=== PATIENT | female | born 1955 | race Caucasian/White ===

== ENCOUNTER 2016-04-23 12:41 | Emergency (ER) | payer BC ==
[~2016-04-23] VITALS: Ht 175.3 cm; Wt 123.4 kg
[~2016-04-23 12:41] MED LIST: ALBU8.5H INH; CLON-241 PO; CLON0.1T PO; ERGO500044 PO; GABA-338 PO; INSU100V12 SQ; INSU100V13 SQ; LEVO200T10 PO; LEVO50TA11 PO; NAPR220T PO
[2016-04-23 12:45] VITALS: TEMP 97.8; Ht 175.3 cm; Wt 123.4 kg
--- OUTSIDE RECORDS SUMMARY | 2016-04-23 12:46 | XMS REPORT ---
Author Johana Lopes [facility] eClinicalWorks Address Unknown Phone Unavailable Care Team Providers Care Processing Clerk Name Role Phone Johana Palacios CP Unavailable Allergies, Adverse Reactions, Alerts Substance Reaction Event Type Penicillin anaphylaxis Drug Allergy Benadryl throat closes Drug Allergy Problems Problem Type Condition Code Onset Dates Condition Status Problem Essential (primary) hypertension I10 Active Problem Chronic obstructive pulmonary disease, unspecified J44.9 Active Problem Secondary polycythemia D75.1 Active Problem Post-traumatic stress disorder, chronic F43.12 Active Assessment Post-traumatic stress disorder, chronic F43.12 Active Problem Other constipation K59.09 Active Problem Bipolar disorder, current episode manic without psychotic features, moderate F31.12 Active Problem Type 2 diabetes mellitus with hyperglycemia E11.65 Active Problem Hypothyroidism, unspecified E03.9 Active Problem 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 Problem Hereditary and idiopathic neuropathy, unspecified G60.9 Active Problem Unspecified constipation 564.00 Active Problem Hypertension, benign 401.1 Active Assessment Bipolar disorder, current episode manic without psychotic features , moderate F31.12 Active Problem Chronic post-traumatic headache 339.22 Active Problem Affective personality disorder, unspecified 301.10 Active Problem Unspecified hereditary and idiopathic peripheral neuropathy 356.9 Active Problem Diabetes mellitus without mention of complication, type II or unspecified type, uncontrolled 250.02 Active Problem Hypersomnia, unspecified 780.54 Active Problem COPD 496 Active Problem Constipation, unspecified K59.00 Active Medications Medication Code System Code Instructions Start Date End Date Status Dosage Vraylar [facility] [address] 1.5mg oral daily,then increase to 3mg by mouth every AM June 11, 2015 am Clonazepam [facility] [address]-42 1 MG Orally up to twice daily for anxiety as needed Levothyroxine Sodium [facility] [address]-21 200 MCG Orally Once a day with a 25mcg tab Mar 25, 2015 1 tablet on an empty stomach in the morning Levothyroxine Sodium [facility] [address]-81 25 MCG Orally Once a day with a 200mcg Nov 01, 2014 1 tablet on an empty stomach in the morning Ventolin HFA [facility] [address]-28 108 (90 Base) MCG/ACT Inhalation every 4 hrs Mar 10, 2013 2 puffs as needed Humalog [facility] [address]-07 100 UNIT/ML Subcutaneous TID with meals 45 units Levemir [facility] [address]-23 100 UNIT/ML Subcutaneous Once a day Oct 25, 2014 55 units Hydrochlorothiazide [facility] [address]-22 25 MG Orally Once a day take one tablet by mouth every day Aspir-81 [facility] [address]-89 81 MG Orally Once a day 1 tablet Gabapentin [facility] [address]-65 300 MG Orally Twice every day 1 capsule Procedures Procedure Coding System Code Date OFFICE VISIT, EST-MOD. COMPLEXITY (25 MIN) CPT-4 77952 June 11, 2015 Vital Signs Date/Time: June 11, 2015 Temperature 98.6 F Height 70 in Weight 283.12 lbs Blood Pressure Diastolic 88 mm Hg Blood Pressure Systolic 152 mm Hg Cardiac Monitoring Heart Rate 102 /min BMI 40.62 Index Respiratory Rate 24 /min Results No Known Results Summary Purpose eClinicalWorks Submission
--- OUTSIDE RECORDS SUMMARY | 2016-04-23 12:46 | XMS REPORT ---
Author Author Kush Gustafson [facility] eClinicalWorks Address Unknown Phone Unavailable Care Team Providers Care Dialysis Tech Name Role Phone Kush Gustafson Unavailable Allergies No Known Allergies Problems Problem Type Condition Code Onset Dates Condition Status Problem Chronic obstructive pulmonary disease, unspecified J44.9 Active Problem Type 2 diabetes mellitus with hyperglycemia E11.65 Active Problem Hypothyroidism, unspecified E03.9 Active Problem Hyperlipidemia, unspecified E78.5 Active Problem COPD exacerbation J44.1 Active Problem Bipolar disorder, unspecified F31.9 Active Problem 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 Problem Hereditary and idiopathic neuropathy, unspecified G60.9 Active Problem Bipolar disorder, current episode manic without psychotic features, moderate F31.12 Active Problem Post-traumatic stress disorder, chronic F43.12 Active Problem Chronic post-traumatic headache, not intractable G44.329 Active Problem Constipation, unspecified K59.00 Active Problem Essential (primary) hypertension I10 Active Problem Hypersomnia, unspecified G47.10 Active Problem Secondary polycythemia D75.1 Active Medications Medication Code System Code Instructions Start Date End Date Status Dosage Pulmicort Flexhaler [facility] [address]-69 180 MCG/ACT Inhalation Twice a day Sep 19, 2015 1 puff Aspir-81 [facility] [address]-12 81 MG Orally Once a day 1 tablet Humalog [facility] [address]-31 100 UNIT/ML Subcutaneous TID with meals 40 units Nicotrol [facility] [address]-81 10 MG Inhalation max of 16 time(s) a day. No smoking while using the inhaler August 13, 2015 Dec 11, 2015 1 puff as needed Albuterol Sulfate [facility] [address]-18 (2.5 MG/3ML) 0.083% Inhalation Three times a day Sep 19, 2015 3 ml Gabapentin [facility] 66760035670 300 MG Orally BID TAKE 1 CAPSULE BY MOUTH EVERY NIGHT AT BEDTIME Levothyroxine Sodium [facility] [address]-98 200 MCG Orally Once a day with a 50mcg tab Mar 25, 2015 1 tablet on an empty stomach in the morning Levothyroxine Sodium [facility] [address]-52 50 MCG Orally Once a day with a 200mcg Nov 01, 2014 1 tablet on an empty stomach in the morning Levemir [facility] [address]-56 100 UNIT/ML Subcutaneous Once a day Oct 25, 2014 50 units Ventolin HFA [facility] [address]-30 108 (90 Base) MCG/ACT Inhalation every 4 hrs Mar 10, 2013 2 puffs as needed Clonazepam [facility] [address]-43 1 MG Orally up to twice daily for anxiety as needed [place] & Syringes [facility] 0 . Dx code E11.65 3 Times a day Oct 24, 2015 as directed Results No Known Results Summary Purpose eClinicalWorks Submission
--- OUTSIDE RECORDS SUMMARY | 2016-04-23 12:46 | XMS REPORT ---
Author Author Johana Palacios Organization eClinicalWorks Address Unknown Phone Unavailable Care Team Providers Care Information Services Consultant Name Role Phone Johana Palacios CP Unavailable Allergies No Known Allergies Problems Problem Type Condition Code Onset Dates Condition Status Problem Chronic post-traumatic headache 339.22 Active Problem Unspecified hypothyroidism 244.9 Active Problem Unspecified constipation 564.00 Active Problem Affective personality disorder, unspecified 301.10 Active Problem COPD 496 Active Problem Unspecified hereditary and idiopathic peripheral neuropathy 356.9 Active Problem Anxiety state, unspecified 300.00 Active Problem Hypertension, benign 401.1 Active Problem Diabetes mellitus without mention of complication, type II or unspecified type, uncontrolled 250.02 Active Problem Bipolar I disorder, single manic episode, unspecified 296.00 Active Medications Medication Code System Code Instructions Start Date End Date Status Dosage Clonazepam [facility] [address]-85 1 MG Orally Three times a day as needed for anxiety as needed Results No Known Results Summary Purpose [employer] Submission
--- OUTSIDE RECORDS SUMMARY | 2016-04-23 12:46 | XMS REPORT ---
Author Author Kush Gustafson Organization eClinicalWorks Address Unknown Phone Unavailable Care Team Providers Care Space Systems Operations Manager Name Role Phone Kush Gustafson CP Unavailable Allergies, Adverse Reactions, Alerts Substance Reaction Event Type Penicillin anaphylaxis Drug Allergy Benadryl throat closes Drug Allergy Problems Problem Type Condition Code Onset Dates Condition Status Problem Essential (primary) hypertension I10 Active Assessment Encounter for screening mammogram for malignant neoplasm of breast Z12.31 Active Problem Secondary polycythemia D75.1 Active Assessment Hyperlipidemia, unspecified E78.5 Active Problem Chronic obstructive pulmonary disease, unspecified J44.9 Active Problem Type 2 diabetes mellitus with hyperglycemia E11.65 Active Problem Hypothyroidism, unspecified E03.9 Active Problem Hyperlipidemia, unspecified E78.5 Active Problem COPD exacerbation J44.1 Active Assessment Mastodynia N64.4 Active Assessment Vertigo R42 Active Problem Bipolar disorder, unspecified F31.9 Active Assessment Controlled type 2 diabetes mellitus without complication, without long-term current use of insulin E11.9 Active Problem 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 Problem Hereditary and idiopathic neuropathy, unspecified G60.9 Active Problem Bipolar disorder, current episode manic without psychotic features, moderate F31.12 Active Problem Post-traumatic stress disorder, chronic F43.12 Active Assessment Bipolar disorder, unspecified F31.9 Active Assessment Secondary polycythemia D75.1 Active Assessment Tension-type headache, unspecified, not intractable G44.209 Active Assessment Hypothyroidism, unspecified E03.9 Active Problem Chronic post-traumatic headache, not intractable G44.329 Active Problem Constipation, unspecified K59.00 Active Assessment Shortness of breath R06.02 Active Problem Hypersomnia, unspecified G47.10 Active Medications Medication Code System Code Instructions Start Date End Date Status Dosage Clonazepam [facility] [address]-36 1 MG Orally up to twice daily for anxiety as needed Ventolin HFA [facility] [address]-02 108 (90 Base) MCG/ACT Inhalation every 4 hrs Mar 10, 2013 2 puffs as needed Albuterol Sulfate [facility] [address]-37 (2.5 MG/3ML) 0.083% Inhalation Three times a day Sep 19, 2015 3 ml Pulmicort Flexhaler [facility] [address]-50 180 MCG/ACT Inhalation Twice a day Sep 19, 2015 1 puff Gabapentin [facility] 92202074359 300 MG Orally BID TAKE 1 CAPSULE BY MOUTH EVERY NIGHT AT BEDTIME Nicotrol [facility] [address]-24 10 MG Inhalation max of 16 time(s) a day. No smoking while using the inhaler August 13, 2015 Dec 11, 2015 1 puff as needed Humalog [facility] [address]-70 100 UNIT/ML Subcutaneous TID with meals 40 units [place] & Syringes [facility] 0 . Dx code E11.65 3 Times a day Oct 24, 2015 as directed Aspir-81 [facility] [address]-62 81 MG Orally Once a day 1 tablet Levothyroxine Sodium [facility] [address]-35 200 MCG Orally Once a day with a 50mcg tab Mar 25, 2015 1 tablet on an empty stomach in the morning Levothyroxine Sodium [facility] [address]-11 50 MCG Orally Once a day with a 200mcg Nov 01, 2014 1 tablet on an empty stomach in the morning Levemir [facility] [address]-77 100 UNIT/ML Subcutaneous Once a day Oct 25, 2014 50 units Procedures Procedure Coding System Code Date OFFICE VISIT, EST-LOW COMPLEXITY (15 MIN.) CPT-4 83980 Nov 21, 2015 Vital Signs Date/Time: Nov 21, 2015 Temperature 97.0 F Height 70 in Weight 287.0 lbs Blood Pressure Diastolic 96 mm Hg Blood Pressure Systolic 138 mm Hg Cardiac Monitoring Heart Rate 77 /min BMI 41.18 Index Oximetry 96 % Respiratory Rate 18 /min Results No Known Results Summary Purpose eClinicalWorks Submission
--- OUTSIDE RECORDS SUMMARY | 2016-04-23 12:46 | XMS REPORT ---
Author Author Rona Yin [facility] eClinicalWorks Address Unknown Phone Unavailable Care Team Providers Care Inspector Tubes Name Role Phone Rona Yin CP Unavailable Allergies No Known Allergies Problems Problem Type Condition ICD-9 Code Onset Dates Condition Status Problem Chronic [...] Instructions Start Date End Date Status Dosage Diflucan [facility] [address]-79 150 MG Orally Take one today, may repeat in 3 days. Feb 22, 2014 Feb 27, 2014 Active 1 tablet Hydrochlorothiazide [facility] [address]-48 12.5 Orally Twice every day Active take one tablet by mouth every day Vital Signs Date/Time: Feb 20, 2014 Height 70 inches Weight 265.8 lbs Temperature 98.3 F Blood Pressure Diastolic 102 mm Hg Blood Pressure Systolic 172 mm Hg Cardiac Monitoring Heart Rate 90 Beats per Minute BMI 38.13 Index Respiratory Rate 16 per Minute Results No Known Results Summary Purpose eClinicalWorks Submission
--- OUTSIDE RECORDS SUMMARY | 2016-04-23 12:46 | XMS REPORT ---
Author Author Jonelle Guzmán [facility] eClinicalWorks Address Unknown Phone Unavailable Care Team Providers Care Compliance Specialist Name Role Phone Jonelle Guzmán CP Unavailable Allergies No Known Allergies Problems [...] 564.00 Active Problem Hypertension, benign 401.1 Active Problem Chronic post-traumatic headache 339.22 Active Problem Affective personality disorder, unspecified 301.10 Active Problem Unspecified hereditary and idiopathic peripheral neuropathy 356.9 Active Problem Diabetes mellitus without mention of complication, type II or unspecified type, uncontrolled 250.02 Active Problem Hypersomnia, unspecified 780.54 Active Problem COPD 496 Active Problem Constipation, unspecified K59.00 Active Medications No Known Medications Results No Known Results Summary Purpose eClinicalWorks Submission
--- OUTSIDE RECORDS SUMMARY | 2016-04-23 12:46 | XMS REPORT ---
Author Author Kush Gustafson [facility] eClinicalWorks Address Unknown Phone Unavailable Care Team Providers Care Loom Winder Tender Name Role Phone Kush Gustafson Unavailable Allergies [...] Post-traumatic stress disorder, chronic F43.12 Active Assessment Hypothyroidism, unspecified E03.9 Active Assessment Secondary polycythemia D75.1 Active Assessment Hyperlipidemia, unspecified E78.5 Active Assessment Controlled type 2 diabetes mellitus without complication, without long-term current use of insulin E11.9 Active Problem Chronic post-traumatic headache, not intractable G44.329 Active Problem Constipation, unspecified K59.00 Active Assessment Shortness of breath R06.02 Active Problem Essential (primary) hypertension I10 Active Problem Hypersomnia, unspecified G47.10 Active Problem Secondary polycythemia D75.1 Active Medications Medication Code System Code Instructions Start Date End Date Status Dosage Nicotrol [facility] [address]-50 10 MG Inhalation max of 16 time(s) a day. No smoking while using the inhaler August 13, 2015 Dec 11, 2015 1 puff as needed Humalog [facility] [address]-80 100 UNIT/ML Subcutaneous TID with meals 40 units Albuterol Sulfate [facility] [address]-19 (2.5 MG/3ML) 0.083% Inhalation Three times a day Sep 19, 2015 3 ml Levothyroxine Sodium [facility] [address]-77 50 MCG Orally Once a day with a 200mcg Nov 01, 2014 1 tablet on an empty stomach in the morning Clonazepam [facility] [address]-26 1 MG Orally up to twice daily for anxiety as needed Ventolin HFA [facility] [address]-19 108 (90 Base) MCG/ACT Inhalation every 4 hrs Mar 10, 2013 2 puffs as needed Pulmicort Flexhaler [facility] [address]-60 180 MCG/ACT Inhalation Twice a day Sep 19, 2015 1 puff [place] & Syringes [facility] 0 . Dx code E11.65 3 Times a day Oct 24, 2015 as directed Levothyroxine Sodium [facility] [address]-52 200 MCG Orally Once a day with a 50mcg tab Mar 25, 2015 1 tablet on an empty stomach in the morning Aspir-81 [facility] [address]-68 81 MG Orally Once a day 1 tablet Gabapentin [facility] 18714054212 300 MG Orally BID TAKE 1 CAPSULE BY MOUTH EVERY NIGHT AT BEDTIME Levemir [facility] [address]-14 100 UNIT/ML Subcutaneous Once a day Oct 25, 2014 50 units Procedures Procedure Coding System Code Date COMPREHENSIVE METABOLIC PANEL CPT-4 68603 Nov 28, 2015 MAGNESIUM CPT-4 26937 Nov 28, 2015 COMPLETE CBC W/AUTO DIFF WBC CPT-4 45265 Nov 28, 2015 TROPONIN CPT-4 38159 Nov 28, 2015 ASSAY OF PHOSPHORUS CPT-4 58565 Nov 28, 2015 URINALYSIS WITH MICROSCOPIC CPT-4 76291 Nov 28, 2015 TSH CPT-4 59712 Nov 28, 2015 Results No Known Results Summary Purpose eClinicalWorks Submission
--- OUTSIDE RECORDS SUMMARY | 2016-04-23 12:46 | XMS REPORT ---
Author Author Rona Yin [facility] eClinicalWorks Address Unknown Phone Unavailable Care Team Providers Care Sap Enterprise Portal Consultant Name Role Phone Rona Yin CP Unavailable [...] single manic episode, unspecified 296.00 Active Medications No Known Medications Results No Known Results Summary Purpose eClinicalWorks Submission
--- OUTSIDE RECORDS SUMMARY | 2016-04-23 12:46 | XMS REPORT ---
Author Author Rona Yin [facility] eClinicalWorks Address Unknown Phone Unavailable Care Team Providers Care Compensation Associate Name Role Phone Rona Yin CP Unavailable Allergies No Known Allergies Problems Problem Type Condition Code Onset Dates Condition Status Problem Unspecified constipation 564.00 Active Problem Hypertension, benign 401.1 Active Problem Unspecified hypothyroidism 244.9 Active Problem Chronic post-traumatic headache 339.22 Active Problem Unspecified hereditary and idiopathic peripheral neuropathy 356.9 Active Problem Affective personality disorder, unspecified 301.10 Active Problem Hypersomnia, unspecified 780.54 Active Problem Bipolar I disorder, single manic episode, unspecified 296.00 Active Problem Anxiety state, unspecified 300.00 Active Problem COPD 496 Active Problem Diabetes mellitus without mention of complication, type II or unspecified type, uncontrolled 250.02 Active Medications No Known Medications Results No Known Results Summary Purpose eClinicalWorks Submission
--- OUTSIDE RECORDS SUMMARY | 2016-04-23 12:46 | XMS REPORT ---
Author Author Shirley Ewing Organization eClinicalWorks Address Unknown Phone Unavailable Care Team Providers Care Rubber Goods Assembler Name Role Phone Shirley Ewing CP Unavailable Allergies No Known Allergies Problems [...] Instructions Start Date End Date Status Dosage Levothyroxine Sodium [facility] 82983181926 175 TAKE ONE TABLET BY MOUTH ONCE A DAY, ON AN EMPTY STOMACH, MUST CALL MD FOR APPOINTMENT Susan [facility] [address]-72 100 UNIT/ML Subcutaneous Once a day Feb 20, 2014 30 units Clonazepam [facility] [address]-61 1 MG Orally Three times a day as needed for anxiety as needed Propranolol HCl [facility] 26281713988 10 Orally up to Twice a day as needed for anxiety 1 tablet Lisinopril [facility] 96310718562 40 Orally Once a day 1 tablet NovoLog [facility] 91538009460 100 Subcutaneous TID w/ meals 20 units Hydrochlorothiazide [facility] 73874584646 12.5 Orally Twice every day take one tablet by mouth every day FluvoxaMINE Maleate ER [facility] 46955241583 100 Orally Once a day 1 capsule at bedtime Gabapentin [facility] [address]-50 300 MG Orally at bedtime May 09, 2014 1 capsule Ventolin HFA [facility] [address]-23 108 (90 Base) MCG/ACT Inhalation every 4 hrs Mar 10, 2013 2 puffs as needed Results No Known Results Summary Purpose eClinicalWorks Submission
--- OUTSIDE RECORDS SUMMARY | 2016-04-23 12:46 | XMS REPORT ---
Author Author Johana Palacios [facility] eClinicalWorks Address Unknown Phone Unavailable Care Team Providers Care Uniform Force Captain Name Role Phone Johana Palacios CP Unavailable [...] Start Date End Date Status Dosage Clonazepam [facility] [address]-77 1 MG Orally Three times a day as needed for anxiety as needed Results No Known Results Summary Purpose [employer] Submission
--- OUTSIDE RECORDS SUMMARY | 2016-04-23 12:46 | XMS REPORT ---
Author Author Jonelle Guzmán [facility] eClinicalWorks Address Unknown Phone Unavailable Care Team Providers Care Shed Boss Name Role Phone Jonelle Guzmán CP Unavailable [...]
--- OUTSIDE RECORDS SUMMARY | 2016-04-23 12:46 | XMS REPORT ---
Author Author Jonelle Guzmán [facility] eClinicalWorks Address Unknown Phone Unavailable Care Team Providers Care Child Support Officer Name Role Phone Jonelle Guzmán CP Unavailable [...] Instructions Start Date End Date Status Dosage Ventolin HFA [facility] [address]-59 108 (90 Base) MCG/ACT Inhalation every 4 hrs Mar 10, 2013 2 puffs as needed Results No Known Results Summary Purpose eClinicalWorks Submission
--- OUTSIDE RECORDS SUMMARY | 2016-04-23 12:46 | XMS REPORT ---
Author Jonelle Head [facility] eClinicalWorks Address Unknown Phone Unavailable Care Team Providers Care Pbx Repairer Name Role Phone Jonelle Guzmán CP Unavailable [...] Active Problem Hypertension, benign 401.1 Active Assessment Polycythemia D75.1 Active Problem Chronic post-traumatic headache 339.22 Active [...] Start Date End Date Status Dosage Nicotrol [facility] [address]-29 10 MG Inhalation max of 16 time(s) a day. No smoking while using the inhaler August 13, 2015 Dec 11, 2015 1 puff as needed Levemir [facility] [address]-95 100 UNIT/ML Subcutaneous Once a day Oct 25, 2014 50 units Clonazepam [facility] [address]-86 1 MG Orally up to twice daily for anxiety as needed Gabapentin [facility] 26019630874 300 MG Orally BID TAKE 1 CAPSULE BY MOUTH EVERY NIGHT AT BEDTIME Humalog [facility] [address]-46 100 UNIT/ML Subcutaneous TID with meals 40 units Levothyroxine Sodium [facility] [address]-35 50 MCG Orally Once a day with a 200mcg Nov 01, 2014 1 tablet on an empty stomach in the morning Cyclobenzaprine HCl [facility] [address]-87 10 MG Orally Once a day Dec 28, 2013 Sep 22, 2015 1 tablet as needed Ventolin HFA [facility] [address]-07 108 (90 Base) MCG/ACT Inhalation every 4 hrs Mar 10, 2013 2 puffs as needed Aspir-81 [facility] [address]-43 81 MG Orally Once a day 1 tablet Levothyroxine Sodium [facility] [address]-96 200 MCG Orally Once a day with a 50mcg tab Mar 25, 2015 1 tablet on an empty stomach in the morning Procedures Procedure Coding System Code Date COMPLETE CBC W/AUTO DIFF WBC CPT-4 86055 Sep 12, 2015 Results No Known Results Summary Purpose eClinicalWorks Submission
--- OUTSIDE RECORDS SUMMARY | 2016-04-23 12:46 | XMS REPORT ---
Author Author Rona Yin [facility] eClinicalWorks Address Unknown Phone Unavailable Care Team Providers Care Order Picker Name Role Phone Rona Yin CP Unavailable [...] unspecified 296.00 Active Medications No Known Medications Vital Signs Date/Time: Feb 20, 2014 Height 70 inches Weight 265.8 lbs Temperature 98.3 F Blood Pressure Diastolic 102 mm Hg Blood Pressure Systolic 172 mm Hg Cardiac Monitoring Heart Rate 90 Beats per Minute BMI 38.13 Index Respiratory Rate 16 per Minute Results No Known Results Summary Purpose eClinicalWorks Submission
--- OUTSIDE RECORDS SUMMARY | 2016-04-23 12:47 | XMS REPORT ---
Author Jonelle Head [facility] [place] eClinicalWorks Address Unknown Phone Unavailable Care Team Providers Care Newspaper Photographer Name Role Phone Jonelle Guzmán CP Unavailable Allergies, Adverse Reactions, Alerts Substance Reaction Event Type Penicillin anaphylaxis Drug Allergy Benadryl throat closes Drug Allergy Problems Problem Type Condition Code Onset Dates Condition Status Problem Anxiety state, unspecified 300.00 Active Problem Diabetes mellitus without mention of complication, type II or unspecified type, uncontrolled 250.02 Active Problem Bipolar I disorder, single manic episode, unspecified 296.00 Active Problem Essential (primary) hypertension I10 Active Problem Constipation, unspecified K59.00 Active Problem Anxiety disorder, unspecified F41.9 Active Problem Affective personality disorder, unspecified 301.10 Active Problem COPD 496 Active Problem Hypersomnia, unspecified 780.54 Active Problem Unspecified hereditary and idiopathic peripheral neuropathy 356.9 Active Assessment Primary central sleep apnea G47.31 Active Assessment Constipation, unspecified K59.00 Active Problem Chronic post-traumatic headache 339.22 Active Problem Unspecified constipation 564.00 Active Assessment Essential (primary) hypertension I10 Active Problem Unspecified hypothyroidism 244.9 Active Assessment Anxiety disorder, unspecified F41.9 Active Problem Hypertension, benign 401.1 Active Medications Medication Code System Code Instructions Start Date End Date Status Dosage Gabapentin [facility] [address]-01 300 MG Orally at bedtime May 09, 2014 1 capsule Levemir [facility] [address]-87 100 UNIT/ML Subcutaneous Once a day Oct 25, 2014 55 units Fluvoxamine Maleate [facility] [address]-81 100 MG Orally Twice a day Oct 23, 2014 1 tablet Levothyroxine Sodium [facility] [address]-66 200 MCG Orally Once a day with an additional 25mcg take one tablet by mouth once a day, on an empty stomach, * Lisinopril [facility] 13886715805 40 Orally Once a day 1 tablet Hydrochlorothiazide [facility] 77230381836 12.5 Orally Twice every day take one tablet by mouth every day Levothyroxine Sodium [facility] [address]-78 25 MCG Orally Once a day with a 200mcg Nov 01, 2014 1 tablet on an empty stomach in the morning Aspir-81 [facility] [address]-50 81 MG Orally Once a day 1 tablet Clonazepam [facility] [address]-89 1 MG Orally Three times a day as needed for anxiety as needed Esomeprazole Magnesium [facility] [address]-74 40 MG Orally Once a day Nov 27, 2014 1 capsule Humalog [facility] [address]-58 100 UNIT/ML Subcutaneous tid 45 u tid Ventolin HFA [facility] [address]-50 108 (90 Base) MCG/ACT Inhalation every 4 hrs Mar 10, 2013 2 puffs as needed Procedures Procedure Coding System Code Date OFFICE VISIT, EST-LOW COMPLEXITY (15 MIN.) CPT-4 93515 Dec 14, 2014 Vital Signs Date/Time: Dec 14, 2014 Height 70 in Weight 287.12 lbs Temperature 98.0 F Blood Pressure Diastolic 116 mm Hg Blood Pressure Systolic 167 mm Hg Cardiac Monitoring Heart Rate 88 /min BMI 41.19 Index Respiratory Rate 18 /min Results No Known Results Summary Purpose eClinicalWorks Submission
--- OUTSIDE RECORDS SUMMARY | 2016-04-23 12:47 | XMS REPORT | Continuity of Care Document ---
Author Author [facility] Organization [facility] Address Unknown Phone Unavailable Support Name Relationship Address Phone TOSHIA HERNANDEZ MD Caregiver [address] [place] [address] Unavailable LADI TERESA APRN Caregiver [address] [place] [address] Unavailable JAYDA GANN Next Of Kin [address] [id number] [phone] c Insurance Providers Guarantor Manuel Gann Address [address] [place] [address] c Email [email or web address] Payer Rust Policy Number [id number] Subscriber's Name Manuel Gann Relationship 18 Self Group Number [id number] Problems Active Problems Medical Problem Onset Date Status ALLERGIC CONJUNCTIVITIS Unknown Acute Acute internal derangement of right knee Unknown Acute Hypertension Unknown Acute Hypertensive urgency Unknown Acute Lumbar strain Unknown Acute Non compliance w medication regimen Unknown Acute Polycythemia Unknown Acute Right ankle sprain Unknown Acute Right ankle sprain Unknown Acute Seizure-like activity Unknown Acute Medications Current Home Medications Medication Dose Units Route Directions Days Qty Instructions Start Date Albuterol Sulfate (Proair Hfa 90 Mcg/Actuation) 8.5 Gm Hfa.aer.ad 1 Puff Inhalation Every 6 Hours as needed for Shortness Of Air 08/15/15 Clonazepam 1 Mg Tablet 1 Mg Oral Twice A Day 10/16/10 Clonidine Hcl 0.1 Mg Tablet 0.1 Tab Oral Twice A Day 08/15/15 Ergocalciferol (Vitamin D2) (Vitamin D2) 50,000 Unit Capsule 50,000 Unit Oral Weekly 08/15/15 Gabapentin 300 Mg Capsule 300 Mg Oral Twice A Day 08/15/15 Insulin Aspart (Novolog) 100 Unit/Ml Inj 40 Unit Sub-Q Three Times Daily With Meals 08/15/15 Insulin Detemir (Levemir) 100 Unit/Ml Inj 50 Unit Sub-Q Bedtime 08/15/15 Levothyroxine Sodium 50 Mcg Tablet 50 Mcg Oral Daily 08/15/15 Levothyroxine Sodium 200 Mcg Tablet 200 Mcg Oral Daily 08/15/15 Naproxen Sodium (Naproxen 220MG) 220 Mg Tablet 440 Mg Oral Twice A Day 08/15/15 Past Home Medications Medication Directions Ordered Status Acetaminophen (Tylenol Extra Strength) 500 Mg Tablet, 500 Mg Oral As Needed 10/05/09 Discontinued Clonazepam 1 Mg Tablet, 1 Mg Oral As Needed 03/21/08 Discontinued Desvenlafaxine Succinate (Pristiq Er) 100 Mg Tab.er.24h, 100 Mg Oral Daily Discontinued Dextrose (Glucose) 1 Tab.chew Tab.chew, 1 Tab.chew Oral As Needed 10/16/10 Discontinued Fluoxetine Hcl (Prozac) 10 Mg Capsule, 10 Mg Oral Daily 06/09/10 Discontinued Insulin Aspart (Novolog) 100 U/Ml Vial, 15 U Sub-Q Before Meals 08/03/11 Discontinued Insulin Aspart (Novolog) 100 U/Ml Cartridge, 6 U Sub-Q Three Times A Day 09/18 Discontinued Insulin Glargine (Lantus) 100 U/Ml Vial, 45 U Sub-Q Bedtime 08/03/11 Discontinued Insulin Glargine (Lantus) 100 U/Ml Vial, 20 U Sub-Q Bedtime 10/16/10 Discontinued Lamotrigine 25 Mg Tab.disper, 25 Mg Oral Daily 05/21/12 Discontinued Levothyroxine Sodium 200 Mcg Tablet, 150 Mcg Oral Daily 08/16/10 Discontinued Levothyroxine Sodium (Synthroid) 200 Mcg Tablet, 200 Mcg Oral Daily 10/05/09 Discontinued Lisinopril 20 Mg Tablet, 20 Mg Oral Daily 10/16/10 Discontinued Lisinopril/Hydrochlorothiazide (Lisinopril-Hctz 20-25 Mg Tab) 1 Tab Tablet, 1 Tab Oral Daily 10/16/10 Discontinued Lorazepam 0.5 Mg Tablet, 0.5 Mg Oral Three Times A Day 08/16/10 Discontinued Lorazepam 0.5 Mg Tablet, 0.5 Mg Oral Twice A Day 06/09/10 Discontinued Lovastatin 20 Mg Tablet, 20 Mg Oral Daily 10/16/10 Discontinued Lovastatin 20 Mg Tablet, 20 Mg Oral Daily 08/03/11 Discontinued Metformin Hcl 1,000 Mg Tablet, 1000 Mg Oral Twice A Day 10/16/10 Discontinued Metoprolol Tartrate 25 Mg Tablet, 25 Mg Oral Daily 08/03/11 Discontinued Propanolol , 1 Tab Oral Daily 06/09/10 Discontinued Quetiapine Fumarate (Seroquel) 50 Mg Tablet, 12.5 As Needed 10/05/09 Discontinued Saphris , 10 Mg Sublingual As Needed 02/18/11 Discontinued Social History Social History Problem Response Recorded Date/Time Onset Date Status Chewing Tobacco Status No 03/02/2013 6:36pm Not Applicable Not Applicable Hx Substance Use No 08/15/2015 10:20am Not Applicable Not Applicable Hx Alcohol Use No 08/15/2015 10:20am Not Applicable Not Applicable Has the pt used tobacco in the last 12 months Yes 08/16/2015 3:06pm Not Applicable Not Applicable Tobacco Usage smoke 12/07/2013 2:24pm Not Applicable Not Applicable Hospital Discharge Instructions Current inpatient/outpatient. Discharge instructions are currently unavailable. Plan of Care Current inpatient/outpatient. The plan of care is currently unavailable Functional Status No functional status results. Allergies, Adverse Reactions, Alerts Allergen Type Severity Reaction Status Last Updated diphenhydramine HCl Allergy Unknown THROAT SWELLING AND INSOMNIA Active Penicillin Allergy Unknown Active 08/15/15 Immunizations Query Response on File Recorded Date/Time Hx Influenza Vaccination No 08/16/15 3:06pm Hx Pneumococcal Vaccination No 08/16/15 3:06pm Hx Tetanus, Diptheria, Pertussis NO BROKEN SKIN 12/07/13 1:08pm Hx Influenza Vaccination No 08/16/15 3:06pm Hx Tetanus, Diptheria, Pertussis NO BROKEN SKIN 12/07/13 1:08pm Vital Signs Acute Vital Signs Vital Response Date/Time Temperature (Fahrenheit) 95.7 deg F (96.8 - 99.1) 08/19/2015 9:49am Temperature (Calculated Celsius) 35.47478 degrees C (36.0 - 37.3) 08/19/2015 9:49am Pulse Rate (adult) 72 bpm (60 - 100) 08/19/2015 11:44am Respiratory Rate 20 breaths/min (10 - 20) 08/19/2015 11:44am O2 Sat by Pulse Oximetry 93 % (90 - 100) 08/19/2015 11:44am Oxygen Delivery Method Room Air 08/19/2015 11:44am Blood Pressure 180/104 mm Hg 08/19/2015 11:44am Blood Pressure Source Automatic Cuff 08/19/2015 11:44am Height (Feet) 5 feet 08/16/2015 3:01pm Height (Inches) 9.00 inches 08/16/2015 3:01pm Weight (Kilograms) 130.300 kg 08/16/2015 3:01pm Body Mass Index (BMI) 42.4 08/16/2015 3:01pm Results Laboratory Results Test Name Result Units Flags Reference Collection Date/Time Result Date/ Time Comments Icterus Index < 2 0-7 08/15/2015 10:50am 08/15/2015 11:31am Chemistry Specimen Hemolysis 102 H 0-25 08/15/2015 10:50am 08/15/2015 11:31am 71-285: Specimen Exhibited Moderate Hemolysis - can falsely elevate K (Potassium), Troponin I, CA 19-9, PTH, CSF Glucose, Urine Protein, and can falsely decrease Phenytoin. Turbidity < 20 0-20 08/15/2015 10:50am 08/15/2015 11:31am Sodium Level 138 MEQ/L 134-144 08/15/2015 10:50am 08/15/2015 11:31am Potassium Level 4.3 MEQ/L 3.6-5 08/15/2015 10:50am 08/15/2015 11:31am Chloride Level 105 MEQ/L 98-107 08/15/2015 10:50am 08/15/2015 11:31am Carbon Dioxide Level 26 MEQ/L 22-30 08/15/2015 10:50am 08/15/2015 11: 31am Anion Gap 7 MEQ/L 5-15 08/15/2015 10:50am 08/15/2015 11:31am Blood Urea Nitrogen 11.0 MG/DL 7-17 08/15/2015 10:50am 08/15/2015 11: 31am Creatinine 0.5 MG/DL L 0.7-1.2 08/15/2015 10:50am 08/15/2015 11:31am BUN/Creatinine Ratio 22 RATIO 6-26 08/15/2015 10:50am 08/15/2015 11: 31am Glomerular Filtration Rate Calc 127 08/15/2015 10:50am 08/15/2015 11:31am Glucose Level 215 MG/DL H 65-110 08/15/2015 10:50am 08/15/2015 11:31am Calculated Osmolality 271 MOSM/KG 261-280 08/15/2015 10:50am 2015 11:31am Calcium Level 8.8 MG/DL 8.4-10.2 08/15/2015 10:50am 08/15/2015 11:31am Troponin I < 0.012 ng/ml 0-0.12 08/15/2015 10:50am 08/15/2015 11:43am Troponin values with a difference of 55% increase from orginal troponin value represent a true biological DELTA value. (%increase Calc=Orginal Troponin value, divided by subsequent Troponin value, multiplied by 100) Prolactin 11.7 NG/ML 08/15/2015 10:50am 08/15/2015 11:48am Normal Female (Non-): 3.0-18.6 ng/ml; Males: 3.7-17.9 ng/ml Lactate Dehydrogenase 507 U/L 313-618 08/19/2015 9:39am 08/19/2015 9: 55am Vitamin B12 Level 433 PG/ML 239-931 08/19/2015 9:39am 08/21/2015 5: 47am Arterial Blood pH 7.390 7.350-7.450 08/19/2015 9:50am 08/19/2015 10: 38am Arterial Blood Partial Pressure CO2 49 MMHG H 34-45 08/19/2015 9:50 10:38am Arterial Blood pO2 at Patient Temp 54 MMHG L 80-100 08/19/2015 9:50am 10:38am Arterial Blood HCO3 30 MEQ/L H 22-26 08/19/2015 9:5008/19/2015 10: 38am Arterial Blood Total CO2 31.2 MEQ/L H 23-27 08/19/2015 9:502015 10:38am Arterial Blood Base Excess 3.8 MMOL/L H -2.0-2.0 08/19/2015 9:5008/18 10:38am Arterial Blood Oxygen Saturation 87.0 % L 95.0-98.0 08/19/2015 9:50am 10:38am Oxygen Delivery Method (LAB) ROOM AIR 08/19/2015 9:5008/19/2015 10:38am Erythropoietin 29.3 mIU/mL H 08/19/2015 9:39am 08/21/2015 12:33pm Reference Range: 2.6 - 18.5 Test Performed by: [facility] [address] [place] [address] Pastry Artist: Marek Wood II, M.D., Ph.D. Erythropoietin performed at [facility], [address] [place] [address] Outpatient Case Manager Nina Franklin MD White Blood Count 7.3 T/MM3 4.5-11.0 08/27/2015 1:08/27/2015 1: 35pm Red Blood Count 5.03 M/MM3 4.00-5.20 08/27/2015 1:08/27/2015 1: 35pm Hemoglobin 16.1 GM/DL H 12-16 08/27/2015 1:08/27/2015 1:35pm Hematocrit 47.9 % H 36-46 08/27/2015 1:08/27/2015 1:35pm Mean Corpuscular Volume 95.2 UM3 80-100 08/27/2015 1:08/27/2015 1: 35pm Mean Corpuscular Hemoglobin 32.0 UUG 26-34 08/27/2015 1:2015 1:35pm Mean Corpuscular Hemoglobin Concent 33.6 GM/DL 31-37 08/27/2015 1:08/27/2015 1:35pm RDW Standard Deviation 48.1 FL 36.9-50.2 08/27/2015 1:08/27/2015 1 :35pm Platelet Count 196 T/MM3 130-400 08/27/2015 1:08/27/2015 1:35pm Mean Platelet Volume 10.1 UM3 9.4-12.4 08/27/2015 1:08/27/2015 1: 35pm Neutrophils (%) (Auto) 66.5 % H 33-66 08/27/2015 1:08/27/2015 1: 35pm Lymphocytes (%) (Auto) 25.5 % 23-45 08/27/2015 1:08/27/2015 1: 35pm Monocytes (%) (Auto) 5.5 % 0-9.0 08/27/2015 1:29pm 08/27/2015 1:35pm Eosinophils (%) (Auto) 1.9 % 0-4 08/27/2015 1:29pm 08/27/2015 1:35pm Basophils (%) (Auto) 0.5 % 0-2 08/27/2015 1:29pm 08/27/2015 1:35pm Immature Granulocyte % (Auto) 0.1 % 0.0-0.5 08/27/2015 1:29pm 2015 1:35pm Absolute Neutrophils (auto) 4.8 T/MM3 1.8-7.7 08/27/2015 1:29pm 2015 1:35pm Absolute Lymphocytes (auto) 1.9 T/MM3 1-4.8 08/27/2015 1:29pm 2015 1:35pm Absolute Monocytes (auto) 0.4 T/MM3 0-0.8 08/27/2015 1:2908/27/2015 1:35pm Absolute Eosinophils (auto) 0.1 T/MM3 0-0.5 08/27/2015 1:29pm 2015 1:35pm Absolute Basophils (auto) 0.0 T/MM3 0-0.2 08/27/2015 1:29pm 08/27/2015 1:35pm Absolute Immature Granulocyte (auto 0.01 T/MM3 0.00-0.03 08/27/2015 1: 29pm 08/27/2015 1:35pm Name: MANUEL GANN Unit #: [id number] : 1955 Sex: F Admit Date: Loc / Svc: MAURIZIO Discharge Date: DIAGNOSTIC IMAGING REPORT Report #: [id number] [facility] FIORELLA Mahmood EXAM: CT CHEST/ABD/PELVIS WC IV contrast COMPARISON: 04/09/2008 CT abdomen and pelvis. HISTORY: ITS.REASON: I10 HTN; R06.02 SOB; R09.02 Hypoxemia; K59.00; F17.200; D75.1 LOCATION OF DICTATION: [facility]. TECHNIQUE: With administration of 100 cc Omnipaque 300 helically acquired scans were obtained from the lung apices through the ischial tuberosities. The study is reviewed in soft tissue, bone and lung windows. The study is reconstructed in thinner axial sections and in coronal reformations. The current CT scan was performed using radiation dose-reduction techniques. FINDINGS: SOFT TISSUES: No axillary or supraclavicular, mediastinal, or hilar lymphadenopathy is identified. The vascular structures appear unremarkable. No significant pericardial effusion is identified. CHEST WALL: Unremarkable. BONES: Endplate sclerosis and spurring is noted of the thoracic spine. No evidence for osseous metastasis. LUNGS: Unremarkable. The lungs are clear. CHEST IMPRESSION: Unremarkable exam. ABDOMEN AND PELVIS FINDINGS: LIVER: Diffusely hypodense likely representing fatty infiltration. GALLBLADDER: Unremarkable. SPLEEN: Unremarkable. PANCREAS: Unremarkable. ADRENAL GLANDS: Unremarkable. AORTA/IVC/VASCULATURE: The abdominal aorta is ectatic with calcific atherosclerotic changes but measures 2.8 cm in greatest diameter. Iliac vessels appear unremarkable. LYMPH NODES: No lymphadenopathy is identified. Small lymph nodes are noted, but are not pathologically enlarged. GENITOURINARY: Unremarkable. No renal calculi or obstructive uropathy. The bladder and ureters appear unremarkable. The kidneys perfuse symmetrically. The bladder is unremarkable. The uterus and ovaries are unremarkable. BOWEL: Unremarkable. The stomach, duodenum, small bowel, and colon appear unremarkable. There is tortuosity to the sigmoid colon. Moderate amount of stool seen in the ascending and transverse colon. The terminal ielum is unremarkable. What is thought to represent the appendix or appendix remnant appears unremarkable. The small bowel is unremarkable as well. The stomach and duodenum are unremarkable. No free intraperitoneal air or fluid is identified. ABDOMINAL/PELVIC WALL: Small umbilical defect without herniated loops of bowel. BONES: Facet hypertrophic changes are seen of the lower lumbar spine. SI joint degenerative changes with sclerosis and vacuum phenomenon is noted. ABDOMEN AND PELVIS IMPRESSION: 1. Diffuse fatty infiltration of the liver. 2. The abdominal aorta is ectatic but only measures 2.8 cm in greatest diameter. 3. Otherwise unremarkable exam. . Procedures Procedure Status Date Provider(s) CT HEAD/BRAIN W/O DYE Completed 08/15/15 CHEST X-RAY 1 VIEW FRONTAL Completed 08/15/15 METABOLIC PANEL TOTAL CA Completed 08/15/15 ASSAY OF PROLACTIN Completed 08/15/15 ASSAY OF TROPONIN QUANT Completed 08/15/15 COMPLETE CBC W/AUTO DIFF WBC Completed 08/15/15 ELECTROCARDIOGRAM TRACING Completed 08/15/15 THER/PROPH/DIAG INJ IV PUSH Completed 08/15/15 EMERGENCY DEPT VISIT Completed 08/15/15 889161"INJECTION, HYDRALAZINE HCL, UP TO 20 MG" Completed 08/15/15 ROUTINE VENIPUNCTURE Completed 08/27/15 CT THORAX W/DYE Completed 08/27/15 CT ABD & PELV W/CONTRAST Completed 08/27/15 COMPLETE CBC W/AUTO DIFF WBC Completed 08/27/15 171174"INFUSION, NORMAL SALINE SOLUTION , 250 CC" Completed 08/27/15 021583"LOW OSMOLAR CONTRAST MATERIAL, 300-399 MG/ML IODINE C Completed Encounters Encounter Location Arrival/Admit Date Discharge/Depart Date Attending Provider Registered Clinic [facility] 08/27/15 1:04pm TOSHIA HERNANDEZ MD Discharged Recurring [facility] 08/19/15 11:00am 10/03/15 11: 59pm TOSHIA HERNANDEZ MD Departed Emergency Room [facility] 08/15/15 10:20am 08/15/15 12: 40pm EM LLOYD MD
--- OUTSIDE RECORDS SUMMARY | 2016-04-23 12:47 | XMS REPORT ---
Author Author Jonelle Guzmán [facility] eClinicalWorks Address Unknown Phone Unavailable Care Team Providers Care Boom Conveyor Operator Name Role Phone Jonelle Guzmán CP Unavailable Allergies No Known Allergies Problems Problem Type Condition Code Onset Dates Condition Status Problem Affective personality disorder, unspecified 301.10 Active Problem Hypersomnia, unspecified 780.54 Active Problem Unspecified hereditary and idiopathic peripheral neuropathy 356.9 Active Problem Hypothyroidism, unspecified E03.9 Active Problem Chronic obstructive pulmonary disease, unspecified J44.9 Active Problem Type 2 diabetes mellitus with hyperglycemia E11.65 Active Problem Essential (primary) hypertension I10 Active Problem Constipation, unspecified K59.00 Active Problem Secondary polycythemia D75.1 Active Problem Anxiety disorder, unspecified F41.9 Active Problem Chronic post-traumatic headache 339.22 Active Problem Unspecified constipation 564.00 Active Problem Anxiety state, unspecified 300.00 Active Problem Bipolar I disorder, single manic episode, unspecified 296.00 Active Problem Unspecified hypothyroidism 244.9 Active Problem Diabetes mellitus without mention of complication, type II or unspecified type, uncontrolled 250.02 Active Problem Hypertension, benign 401.1 Active Problem COPD 496 Active Medications No Known Medications Results No Known Results Summary Purpose eClinicalWorks Submission
--- OUTSIDE RECORDS SUMMARY | 2016-04-23 12:47 | XMS REPORT ---
Author Author Jonelle Guzmán [facility] eClinicalWorks Address Unknown Phone Unavailable Care Team Providers Care Marine Service Operator Name Role Phone Jonelle Guzmán CP [...]
--- OUTSIDE RECORDS SUMMARY | 2016-04-23 12:47 | XMS REPORT ---
Author Author Jonelle Guzmán [facility] eClinicalWorks Address Unknown Phone Unavailable Care Team Providers Care Relay Record Clerk Name Role Phone Jonelle Guzmán Unavailable Allergies No Known Allergies Problems Problem Type Condition ICD-9 Code Onset Dates Condition Status Problem Unspecified [...] or unspecified type, uncontrolled 250.02 Active Medications Medication Code System Code Instructions Start Date End Date Status Dosage Levemir [facility] [address]-24 100 UNIT/ML Subcutaneous Once a day Oct 25, 2014 50 units Results No Known Results Summary Purpose eClinicalWorks Submission
--- OUTSIDE RECORDS SUMMARY | 2016-04-23 12:47 | XMS REPORT ---
Author Jonelle Head eClinicalWorks Address Unknown Phone Unavailable Care Team Providers Care Coal Tram Driver Name Role Phone Jonelle Guzmán Unavailable Allergies No Known Allergies Problems Problem Type Condition Code Onset Dates Condition Status Problem Secondary polycythemia D75.1 Active Problem Hypothyroidism, unspecified E03.9 Active Problem Chronic obstructive pulmonary disease, unspecified J44.9 Active Problem Bipolar disorder, current episode manic without psychotic features, moderate F31.12 Active Assessment Secondary polycythemia D75.1 Active Problem Post-traumatic stress disorder, chronic F43.12 Active Problem COPD exacerbation J44.1 Active Problem Hereditary and idiopathic neuropathy, unspecified G60.9 Active Problem Type 2 diabetes mellitus with hyperglycemia E11.65 Active Problem Other constipation K59.09 Active Problem 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 Problem Hypertension, benign 401.1 Active Problem Diabetes mellitus without mention of complication, type II or unspecified type, uncontrolled 250.02 Active Problem Chronic post-traumatic headache 339.22 Active Problem Unspecified constipation 564.00 Active Problem Unspecified hereditary and idiopathic peripheral neuropathy 356.9 Active Problem Hypersomnia, unspecified 780.54 Active Problem COPD 496 Active Problem Constipation, unspecified K59.00 Active Problem Affective personality disorder, unspecified 301.10 Active Problem Essential (primary) hypertension I10 Active Medications Medication Code System Code Instructions Start Date End Date Status Dosage Levemir [facility] [address]-63 100 UNIT/ML Subcutaneous Once a day Oct 25, 2014 50 units Ventolin HFA [facility] [address]-21 108 (90 Base) MCG/ACT Inhalation every 4 hrs Mar 10, 2013 2 puffs as needed Albuterol Sulfate [facility] [address]-22 (2.5 MG/3ML) 0.083% Inhalation Three times a day Sep 19, 2015 3 ml Aspir-81 [facility] [address]-63 81 MG Orally Once a day 1 tablet Nicotrol [facility] [address]-16 10 MG Inhalation max of 16 time(s) a day. No smoking while using the inhaler August 13, 2015 Dec 11, 2015 1 puff as needed Humalog [facility] [address]-01 100 UNIT/ML Subcutaneous TID with meals 40 units Pulmicort Flexhaler [facility] [address]-84 180 MCG/ACT Inhalation Twice a day Sep 19, 2015 1 puff Doxycycline Hyclate [facility] [address]-06 100 MG Orally Twice a day Sep 18, 2015 Sep 28, 2015 1 tablet Levothyroxine Sodium [facility] [address]-16 200 MCG Orally Once a day with a 50mcg tab Mar 25, 2015 1 tablet on an empty stomach in the morning Levothyroxine Sodium [facility] [address]-75 50 MCG Orally Once a day with a 200mcg Nov 01, 2014 1 tablet on an empty stomach in the morning Gabapentin [facility] 87984434170 300 MG Orally BID TAKE 1 CAPSULE BY MOUTH EVERY NIGHT AT BEDTIME Clonazepam [facility] [address]-34 1 MG Orally up to twice daily for anxiety as needed Procedures Procedure Coding System Code Date COMPLETE CBC W/AUTO DIFF WBC CPT-4 59871 Sep 27, 2015 Results No Known Results Summary Purpose eClinicalWorks Submission
--- OUTSIDE RECORDS SUMMARY | 2016-04-23 12:47 | XMS REPORT ---
Author Author Rona Yin [facility] eClinicalWorks Address Unknown Phone Unavailable Care Team Providers Care Maintenance And Engineering Manager Name Role Phone Rona Yin Unavailable Allergies, Adverse Reactions, Alerts Substance Reaction Event Type Penicillin anaphylaxis Drug Allergy Benadryl throat closes Drug Allergy Problems Problem Type Condition ICD-9 Code Onset [...] disorder, single manic episode, unspecified 296.00 Active Assessment Unspecified hypothyroidism 244.9 Active Assessment Hypertension, benign 401.1 Active Assessment Diabetes mellitus without mention of complication, type II or unspecified type, uncontrolled 250.02 Active Medications Medication Code System Code Instructions Start Date End Date Status Dosage Ventolin HFA [facility] [address]-40 108 (90 Base) MCG/ACT Inhalation every 4 hrs Mar 10, 2013 2 puffs as needed Lantus [facility] [address]-48 100 UNIT/ML Subcutaneous Once a day Feb 20, 2014 50 units Clonazepam [facility] [address]-73 1 MG Orally Three times a day as needed for anxiety as needed FluvoxaMINE Maleate ER [facility] 89313338457 100 Orally Once a day 1 capsule at bedtime Aspir-81 [facility] [address]-61 81 MG Orally Once a day 1 tablet Hydrochlorothiazide [facility] [address]-29 12.5 MG Orally Once a day 1 tablet Lisinopril [facility] 74674875223 40 Orally Once a day 1 tablet NovoLog [facility] [address]-57 100 Subcutaneous TID w/ meals 40 units Gabapentin [facility] [address]-22 300 MG Orally at bedtime May 09, 2014 1 capsule Flexeril [facility] [address]-98 5 MG Orally Once a day 1 tablet Levothyroxine Sodium [facility] 07602806687 175 TAKE ONE TABLET BY MOUTH ONCE A DAY, ON AN EMPTY STOMACH, MUST CALL MD FOR APPOINTMENT Procedures Procedure Coding System Code Date LIPID PANEL CPT-4 52066 August 07, 2014 HEMOGLOBIN A1C, IN HOUSE CPT-4 66938 August 07, 2014 CMP CPT-4 84734 August 07, 2014 OFFICE VISIT, EST-LOW COMPLEXITY (15 MIN.) CPT-4 04327 August 07, 2014 Vital Signs Date/Time: August 07, 2014 Height 70 in Weight 283. lbs Temperature 98.6 F Blood Pressure Diastolic 84 mm Hg Blood Pressure Systolic 148 mm Hg Cardiac Monitoring Heart Rate 80 /min BMI 40.60 Index Respiratory Rate 18 /min Results Name Result Date Reference Range Unit Abnormality Flag In House HB A1c Summary Purpose eClinicalWorks Submission
--- OUTSIDE RECORDS SUMMARY | 2016-04-23 12:47 | XMS REPORT ---
Author Jonelle Head eClinicalWorks Address Unknown Phone Unavailable Care Team Providers Care Welfare Worker Name Role Phone Jonelle Guzmán CP Unavailable Allergies, Adverse Reactions, Alerts Substance Reaction Event Type Penicillin anaphylaxis Drug Allergy Benadryl throat closes Drug Allergy Problems Problem Type Condition Code Onset Dates Condition Status Assessment Nicotine abuse Z72.0 Active Assessment Secondary polycythemia D75.1 Active Problem Hypersomnia, unspecified 780.54 Active Assessment Hypothyroidism, unspecified E03.9 Active Problem Constipation, unspecified K59.00 Active Assessment Hereditary and idiopathic neuropathy, unspecified G60.9 Active Problem Essential (primary) hypertension I10 Active Problem Chronic obstructive pulmonary disease, unspecified J44.9 Active Problem Secondary polycythemia D75.1 Active Problem Post-traumatic stress disorder, chronic F43.12 Active Problem Other constipation K59.09 Active Assessment Type 2 diabetes mellitus with hyperglycemia E11.65 Active Assessment Essential (primary) hypertension I10 Active Problem Bipolar disorder, current episode manic without psychotic features, moderate F31.12 Active Assessment 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 Problem Type 2 diabetes mellitus with hyperglycemia E11.65 Active Problem Hypothyroidism, unspecified E03.9 Active Problem 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 Problem Hereditary and idiopathic neuropathy, unspecified G60.9 Active Problem Unspecified constipation 564.00 Active Problem Hypertension, benign 401.1 Active Assessment Chronic constipation K59.09 Active Problem Chronic post-traumatic headache 339.22 Active Problem Affective personality disorder, unspecified 301.10 Active Problem Unspecified hereditary and idiopathic peripheral neuropathy 356.9 Active Problem Diabetes mellitus without mention of complication, type II or unspecified type, uncontrolled 250.02 Active Problem COPD 496 Active Medications Medication Code System Code Instructions Start Date End Date Status Dosage Humalog [facility] [address]-95 100 UNIT/ML Subcutaneous TID with meals 40 units Levemir [facility] [address]-46 100 UNIT/ML Subcutaneous Once a day Oct 25, 2014 50 units Ventolin HFA [facility] [address]-73 108 (90 Base) MCG/ACT Inhalation every 4 hrs Mar 10, 2013 2 puffs as needed Cholecalciferol [facility] [address]-77 14638 UNIT Orally once a week for 8 weeks June 27, 2015 August 26, 2015 1 capsule Gabapentin [facility] 07626273153 300 MG Orally BID TAKE 1 CAPSULE BY MOUTH EVERY NIGHT AT BEDTIME Aspir-81 [facility] [address]-31 81 MG Orally Once a day 1 tablet Levothyroxine Sodium [facility] [address]-53 200 MCG Orally Once a day with a 50mcg tab Mar 25, 2015 1 tablet on an empty stomach in the morning Levothyroxine Sodium [facility] [address]-26 50 MCG Orally Once a day with a 200mcg Nov 01, 2014 1 tablet on an empty stomach in the morning Clonazepam [facility] [address]-57 1 MG Orally up to twice daily for anxiety as needed Nicotrol [facility] [address]-18 10 MG Inhalation max of 16 time(s) a day. No smoking while using the inhaler August 13, 2015 Dec 11, 2015 1 puff as needed Procedures Procedure Coding System Code Date OFFICE VISIT, EST-MOD. COMPLEXITY (25 MIN) CPT-4 80319 August 13, 2015 Vital Signs Date/Time: August 13, 2015 Temperature 98.4 F Height 70 in Weight 286.12 lbs Blood Pressure Diastolic 90 mm Hg Blood Pressure Systolic 170 mm Hg Cardiac Monitoring Heart Rate 91 /min BMI 41.05 Index Oximetry 94 % Results No Known Results Summary Purpose eClinicalWorks Submission
--- OUTSIDE RECORDS SUMMARY | 2016-04-23 12:47 | XMS REPORT ---
Author Author Jonelle Guzmán [facility] eClinicalWorks Address Unknown Phone Unavailable Care Team Providers Care Shake Out Worker Name Role Phone Jnoelle Guzmán CP Unavailable Allergies No Known Allergies [...] Problem Essential (primary) hypertension I10 Active Medications No Known Medications Results No Known Results Summary Purpose eClinicalWorks Submission
--- OUTSIDE RECORDS SUMMARY | 2016-04-23 12:47 | XMS REPORT ---
Author Author Rona Yin [facility] eClinicalWorks Address Unknown Phone Unavailable Care Team Providers Care Interstate Planner Name Role Phone Rona Yin CP Unavailable [...] and idiopathic peripheral neuropathy 356.9 Active Problem Chronic post-traumatic headache 339.22 Active Problem Unspecified constipation 564.00 Active Problem Unspecified hypothyroidism 244.9 Active Problem Hypertension, benign 401.1 Active Medications No Known Medications Results No Known Results Summary Purpose eClinicalWorks Submission
--- OUTSIDE RECORDS SUMMARY | 2016-04-23 12:47 | XMS REPORT ---
Author Author Johana Palacios Organization eClinicalWorks Address Unknown Phone Unavailable Care Team Providers Care Microbiology Lab Analyst Name Role Phone Johana Palacios CP Unavailable [...] Dosage Clonazepam [facility] [address]-98 1 MG Orally Three times a day as needed for anxiety as needed Results No Known Results Summary Purpose eClinicalWorks Submission
--- OUTSIDE RECORDS SUMMARY | 2016-04-23 12:47 | XMS REPORT ---
Author Author Johana Palacios Organization eClinicalWorks Address Unknown Phone Unavailable Care Team Providers Care County Attorney Name Role Phone Johana Palacios CP Unavailable [...] Start Date End Date Status Dosage Clonazepam [facility] [address]-01 1 MG Orally Three times a day as needed for anxiety as needed Results No Known Results Summary Purpose eClinicalWorks Submission
--- OUTSIDE RECORDS SUMMARY | 2016-04-23 12:47 | XMS REPORT ---
Author Author Jonelle Guzmán [facility] eClinicalWorks Address Unknown Phone Unavailable Care Team Providers Care Cnp Name Role Phone Jonelle Guzmán CP Unavailable [...] Instructions Start Date End Date Status Dosage Lisinopril [facility] [address]-67 40 MG Orally Once a day 1 tablet Results No Known Results Summary Purpose eClinicalWorks Submission
--- OUTSIDE RECORDS SUMMARY | 2016-04-23 12:47 | XMS REPORT ---
Author Author Jonelle Guzmán [facility] eClinicalWorks Address Unknown Phone Unavailable Care Team Providers Care Support Services Rep Name Role Phone Jonelle Guzmán CP Unavailable [...] Start Date End Date Status Dosage Clonazepam [facility] [address]-51 1 MG Orally up to twice daily for anxiety as needed Results No Known Results Summary Purpose eClinicalWorks Submission
--- OUTSIDE RECORDS SUMMARY | 2016-04-23 12:48 | XMS REPORT ---
Author Author Jonelle Guzmán [facility] eClinicalWorks Address Unknown Phone Unavailable Care Team Providers Care Photographer Helper Name Role Phone Jonelle Guzmán CP Unavailable [...] 401.1 Active Problem COPD 496 Active Medications Medication Code System Code Instructions Start Date End Date Status Dosage Humalog [facility] [address]-46 100 UNIT/ML Subcutaneous tid 45 u tid Results No Known Results Summary Purpose eClinicalWorks Submission
--- OUTSIDE RECORDS SUMMARY | 2016-04-23 12:48 | XMS REPORT ---
Author Author Jonelle Guzmán [facility] eClinicalWorks Address Unknown Phone Unavailable Care Team Providers Care Mule Developer Name Role Phone Jonelle Guzmán CP Unavailable [...] Medications Results No Known Results Summary Purpose [employer] Submission
--- OUTSIDE RECORDS SUMMARY | 2016-04-23 12:48 | XMS REPORT ---
Author Author Rona Yin [facility] eClinicalWorks Address Unknown Phone Unavailable Care Team Providers Care Coupon Manifest Clerk Name Role Phone Rona Yin CP Unavailable [...] Medications Results No Known Results Summary Purpose Amanda Huff DBA SecuRecoveryinicalWorks Submission
--- OUTSIDE RECORDS SUMMARY | 2016-04-23 12:48 | XMS REPORT ---
Author Author Jonelle Guzmán [facility] eClinicalWorks Address Unknown Phone Unavailable Care Team Providers Care Composition Floor Setter Name Role Phone Jonelle Guzmán Unavailable Allergies [...] Active Problem Secondary polycythemia D75.1 Active Medications No Known Medications Results No Known Results Summary Purpose eClinicalWorks Submission
--- OUTSIDE RECORDS SUMMARY | 2016-04-23 12:48 | XMS REPORT ---
Author Author Rona Yin [facility] eClinicalWorks Address Unknown Phone Unavailable Care Team Providers Care Voice Teacher Name Role Phone Rona Yin CP Unavailable [...]
--- OUTSIDE RECORDS SUMMARY | 2016-04-23 12:48 | XMS REPORT ---
Author Author Jonelle Guzmán [facility] eClinicalWorks Address Unknown Phone Unavailable Care Team Providers Care Bullet Maker Name Role Phone Jonelle Guzmán CP Unavailable [...]
--- OUTSIDE RECORDS SUMMARY | 2016-04-23 12:48 | XMS REPORT ---
Author Author Rona Yin [facility] eClinicalWorks Address Unknown Phone Unavailable Care Team Providers Care Instrument Technician Name Role Phone Rona Yin CP Unavailable [...]
--- OUTSIDE RECORDS SUMMARY | 2016-04-23 12:48 | XMS REPORT ---
Author Jonelle Head eClinicalWorks Address Unknown Phone Unavailable Care Team Providers Care Solar Sales Assessor Name Role Phone Jonelle Guzmán CP Unavailable Allergies, Adverse Reactions, Alerts Substance Reaction Event Type Penicillin anaphylaxis Drug Allergy Benadryl throat closes Drug Allergy Problems Problem Type Condition Code Onset Dates Condition Status Problem Unspecified constipation 564.00 Active Problem Hypertension, benign 401.1 Active Problem Unspecified hypothyroidism 244.9 Active Problem Unspecified hereditary and idiopathic peripheral neuropathy 356.9 Active Problem Affective personality disorder, unspecified 301.10 Active Problem Hypersomnia, unspecified 780.54 Active Problem Bipolar I disorder, single manic episode, unspecified 296.00 Active Problem Anxiety state, unspecified 300.00 Active Problem COPD 496 Active Problem Diabetes mellitus without mention of complication, type II or unspecified type, uncontrolled 250.02 Active Assessment Mastodynia N64.4 Active Assessment Functional dyspepsia K30 Active Problem Chronic post-traumatic headache 339.22 Active Medications Medication Code System Code Instructions Start Date End Date Status Dosage Lisinopril [facility] [id number] 40 Orally Once a day 1 tablet Humalog [facility] [address]-78 100 UNIT/ML Subcutaneous tid 45 u tid Clonazepam [facility] [address]-68 1 MG Orally Three times a day as needed for anxiety as needed Ventolin HFA [facility] [address]-41 108 (90 Base) MCG/ACT Inhalation every 4 hrs Mar 10, 2013 2 puffs as needed Esomeprazole Magnesium [facility] [address]-55 40 MG Orally Once a day Nov 27, 2014 1 capsule Gabapentin [facility] [address]-12 300 MG Orally at bedtime May 09, 2014 1 capsule Aspir-81 [facility] [address]-77 81 MG Orally Once a day 1 tablet Levothyroxine Sodium [facility] [address]-21 200 MCG Orally Once a day with an additional 25mcg take one tablet by mouth once a day, on an empty stomach, * Levemir [facility] [address]-52 100 UNIT/ML Subcutaneous Once a day Oct 25, 2014 55 units Levothyroxine Sodium [facility] [address]-44 25 MCG Orally Once a day with a 200mcg Nov 01, 2014 1 tablet on an empty stomach in the morning Hydrochlorothiazide [facility] 59930515530 12.5 Orally Twice every day take one tablet by mouth every day Fluvoxamine Maleate [facility] [address]-01 100 MG Orally Twice a day Oct 23, 2014 1 tablet Procedures Procedure Coding System Code Date OFFICE VISIT, EST-LOW COMPLEXITY (15 MIN.) CPT-4 44463 Nov 27, 2014 Vital Signs Date/Time: Nov 27, 2014 Height 70 in Weight 287 lbs Temperature 98.2 F Blood Pressure Diastolic 72 mm Hg Blood Pressure Systolic 122 mm Hg Cardiac Monitoring Heart Rate 60 /min BMI 41.18 Index Oximetry 91 % Respiratory Rate 18 /min Results No Known Results Summary Purpose eClinicalWorks Submission
--- OUTSIDE RECORDS SUMMARY | 2016-04-23 12:48 | XMS REPORT ---
Author Author Jonelle Guzmán [facility] eClinicalWorks Address Unknown Phone Unavailable Care Team Providers Care Training Coordinator Name Role Phone Jonelle Guzmán CP Unavailable [...]
--- OUTSIDE RECORDS SUMMARY | 2016-04-23 12:48 | XMS REPORT ---
Author Jonelle Head [facility] eClinicalWorks Address Unknown Phone Unavailable Care Team Providers Care Continuous Mining Machine Lode Miner Name Role Phone Jonelle Guzmán Unavailable Allergies No Known Allergies Problems Problem Type Condition Code Onset Dates Condition Status Problem Essential (primary) hypertension I10 Active Problem Chronic obstructive pulmonary disease, unspecified J44.9 Active Problem Secondary polycythemia D75.1 Active Problem Post-traumatic stress disorder, chronic F43.12 Active Assessment Hypothyroidism, unspecified E03.9 Active Problem Other constipation K59.09 Active Problem Bipolar disorder, current episode manic without psychotic features, moderate F31.12 Active Problem Type 2 diabetes mellitus with hyperglycemia E11.65 Active Problem Hypothyroidism, unspecified E03.9 Active Problem 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 No smoking while using the inhaler August 13, 2015 Dec 11, 2015 1 puff as needed Gabapentin [facility] 93667912945 300 MG Orally BID TAKE 1 CAPSULE BY MOUTH EVERY NIGHT AT BEDTIME Aspir-81 [facility] [address]-33 81 MG Orally Once a day 1 tablet Levothyroxine Sodium [facility] [address]-47 200 MCG Orally Once a day with a 50mcg tab Mar 25, 2015 1 tablet on an empty stomach in the morning Humalog [facility] [address]-23 100 UNIT/ML Subcutaneous TID with meals 40 units Cyclobenzaprine HCl [facility] [address]-24 10 MG Orally Once a day Dec 28, 2013 Sep 22, 2015 1 tablet as needed Clonazepam [facility] [address]-34 1 MG Orally up to twice daily for anxiety as needed Levothyroxine Sodium [facility] [address]-40 50 MCG Orally Once a day with a 200mcg Nov 01, 2014 1 tablet on an empty stomach in the morning Ventolin HFA [facility] [address]-88 108 (90 Base) MCG/ACT Inhalation every 4 hrs Mar 10, 2013 2 puffs as needed Procedures Procedure Coding System Code Date TSH CPT-4 80335 September 03, 2015 COMPLETE CBC W/AUTO DIFF WBC CPT-4 87525 September 03, 2015 Results Name Result Date Reference Range Unit Abnormality Flag TSH ----TSH 2.74 [id number] 0.35-4.94 uIU/mL CBC With Platelet and Differential ----MCHC 34.4 86751817 32.0-36.0 g/dL ----MCH 32.6 [id number] 27.0-32.0 pg H ----MPV 10.7 [id number] 8.8-14.8 fL ----RDW 14.8 [id number] 11.5-14.5 % H ----Eosinophils 2 25874672 0-4 % ----Basophils 1 09180217 0-2 % ----Immature Granulocytes 0.4 [id number] 0.0-1.0 % ----Absolute Neutrophils 4.74 58773422 1.90-7.00 10*3 ----Platelet Count 222 [id number] 150-400 K/uL ----Absolute Eosinophils 0.16 24049751 0.00-0.50 10*3 ----HCT 48.5 [id number] 37.0-47.0 % H ----Absolute Basophils 0.04 [id number] 0.00-0.20 10*3 ----MCV 94.7 [id number] 82.0-99.0 fL ----RBC 5.12 [id number] 4.00-5.20 10*6/uL ----Absolute Lymphocytes 2.51 [id number] 0.80-3.30 10*3 ----Absolute Monocytes 0.56 [id number] 0.30-1.00 10*3 ----HGB 16.7 [id number] 12.0-16.0 g/dL H ----Monocytes 7 20150903 4-11 % ----WBC 8.0 [id number] 4.8-10.8 K/uL ----Neutrophils 59 20150903 51-75 % ----Lymphocytes 31 20150903 20-46 % Summary Purpose eClinicalWorks Submission
--- OUTSIDE RECORDS SUMMARY | 2016-04-23 12:48 | XMS REPORT ---
Author Author Rona Yin [facility] eClinicalWorks Address Unknown Phone Unavailable Care Team Providers Care Customer Success Advocate Name Role Phone Rona Yin CP Unavailable Allergies No Known Allergies Problems Problem Type Condition ICD-9 Code Onset Dates Condition Status Problem Chronic post-traumatic headache 339.22 Active Problem Unspecified hypothyroidism 244.9 Active Problem Unspecified constipation 564.00 Active Assessment COPD 496 Active Problem Affective personality disorder, unspecified 301.10 [...] Date End Date Status Dosage Ventolin HFA [facility] [address]-72 108 (90 Base) MCG/ACT Inhalation every 4 hrs Mar 10, 2013 2 puffs as needed Results No Known Results Summary Purpose eClinicalWorks Submission
--- OUTSIDE RECORDS SUMMARY | 2016-04-23 12:48 | XMS REPORT ---
Author Author Rona Yin [facility] eClinicalWorks Address Unknown Phone Unavailable Care Team Providers Care Division Chair Name Role Phone Rona Yin Unavailable Allergies No Known Allergies Problems Problem Type Condition ICD-9 Code Onset Dates Condition Status Problem Chronic post-traumatic headache 339.22 Active Problem Unspecified hypothyroidism 244.9 Active Problem Unspecified constipation 564.00 Active Assessment Diabetes mellitus without mention of complication, type II or unspecified type, uncontrolled 250.02 Active Problem Affective personality disorder, unspecified 301.10 [...] Instructions Start Date End Date Status Dosage NovoLog [facility] [address]-99 100 Subcutaneous TID w/ meals 40 units Lisinopril [facility] 98990022868 40 Orally Once a day 1 tablet Flexeril [facility] [address]-50 5 MG Orally Once a day 1 tablet Clonazepam [facility] [address]-47 1 MG Orally Three times a day as needed for anxiety as needed Lantus [facility] [address]-80 100 UNIT/ML Subcutaneous Once a day Feb 20, 2014 50 units Ventolin HFA [facility] [address]-16 108 (90 Base) MCG/ACT Inhalation every 4 hrs Mar 10, 2013 2 puffs as needed Gabapentin [facility] [address]-98 300 MG Orally at bedtime May 09, 2014 1 capsule Aspir-81 [facility] [address]-02 81 MG Orally Once a day 1 tablet Levothyroxine Sodium [facility] 72144410217 175 TAKE ONE TABLET BY MOUTH ONCE A DAY, ON AN EMPTY STOMACH, MUST CALL MD FOR APPOINTMENT FluvoxaMINE Maleate ER [facility] 59029558062 100 Orally Once a day 1 capsule at bedtime Procedures Procedure Coding System Code Date TSH CPT-4 06994 August 07, 2014 COMPLETE CBC W/AUTO DIFF WBC CPT-4 08764 August 07, 2014 Results No Known Results Summary Purpose eClinicalWorks Submission
--- OUTSIDE RECORDS SUMMARY | 2016-04-23 12:48 | XMS REPORT ---
Author Author Rona Yin [facility] eClinicalWorks Address Unknown Phone Unavailable Care Team Providers Care Client Support Administrator Name Role Phone Rona Yin Unavailable Allergies, [...] single manic episode, unspecified 296.00 Active Assessment Screening for lipoid disorders V77.91 Active Assessment Diabetes mellitus without mention of complication, type II or unspecified type, uncontrolled 250.02 Active Assessment Hypertension, benign 401.1 Active Medications Medication Code System Code Instructions Start Date End Date Status Dosage Amlodipine Besylate [facility] [address]-85 10 MG Orally Once a day Dec 22, 2013 Jan 25, 2014 Inactive 1 tablet Hydrochlorothiazide [facility] [address]-29 12.5 Orally Once a day Active take one tablet by mouth every day Fluoxetine HCl [facility] [address]-80 60 Mg Orally Once a day Active 1 capsule at hs Clonazepam [facility] [address]-39 0.5 MG Orally Six times a day Active As directed Levothyroxine Sodium [facility] [address]-86 175 Active TAKE ONE TABLET BY MOUTH ONCE A DAY, ON AN EMPTY STOMACH, MUST CALL MD FOR APPOINTMENT Lisinopril [facility] [address]-07 40 MG Orally Once a day Feb 20, 2014 Active 1 tablet Ventolin HFA [facility] [address]-50 108 (90 Base) MCG/ACT Inhalation every 4 hrs Mar 10, 2013 Active 2 puffs as needed Lantus [facility] [address]-59 100 UNIT/ML Subcutaneous Once a day Feb 20, 2014 Active 30 units Combivent [facility] [address]-65 18-103 MCG/ACT Inhalation Four times a day Active 2 puffs NovoLog [facility] [address]-58 100 UNIT/ML Subcutaneous TID w/ meals Feb 20, 2014 Active 20 units Procedures Procedure Coding System Code Date OFFICE VISIT, EST-MOD. COMPLEXITY (25 MIN) CPT-4 22843 Feb 20, 2014 Vital Signs Date/Time: Feb 20, 2014 Height 70 inches Weight 265.8 lbs Temperature 98.3 F Blood Pressure Diastolic 102 mm Hg Blood Pressure Systolic 172 mm Hg Cardiac Monitoring Heart Rate 90 Beats per Minute BMI 38.13 Index Respiratory Rate 16 per Minute Results No Known Results Summary Purpose eClinicalWorks Submission
--- OUTSIDE RECORDS SUMMARY | 2016-04-23 12:48 | XMS REPORT ---
Author Author Johana Palacios Organization eClinicalWorks Address Unknown Phone Unavailable Care Team Providers Care Sccm Administrator Name Role Phone Johana Palacios CP Unavailable [...]
--- OUTSIDE RECORDS SUMMARY | 2016-04-23 12:48 | XMS REPORT ---
Author Author Lori Santiago [facility] eClinicalWorks Address Unknown Phone Unavailable Care Team Providers Care Cloth Tester Quality Name Role Phone Lori Santiago CP Unavailable Allergies, Adverse Reactions, Alerts Substance Reaction Event Type Penicillin anaphylaxis Drug Allergy Benadryl throat closes Drug Allergy Problems Problem Type Condition Code Onset Dates Condition Status Problem Essential (primary) hypertension I10 Active Problem Chronic obstructive pulmonary disease, unspecified J44.9 Active Problem Secondary polycythemia D75.1 Active Problem Post-traumatic stress disorder, chronic F43.12 Active Assessment Snoring R06.83 Active Problem Other constipation K59.09 Active Assessment Screening mammogram, encounter for Z12.31 Active Problem Bipolar disorder, current episode manic without psychotic features, moderate F31.12 Active Problem Type 2 diabetes mellitus with hyperglycemia E11.65 Active Problem Hypothyroidism, unspecified E03.9 Active Problem 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 No smoking while using the inhaler August 13, 2015 Dec 11, 2015 1 puff as needed Levothyroxine Sodium [facility] [address]-16 50 MCG Orally Once a day with a 200mcg Nov 01, 2014 1 tablet on an empty stomach in the morning Levemir [facility] [address]-43 100 UNIT/ML Subcutaneous Once a day Oct 25, 2014 50 units Ventolin HFA [facility] [address]-96 108 (90 Base) MCG/ACT Inhalation every 4 hrs Mar 10, 2013 2 puffs as needed Cyclobenzaprine HCl [facility] [address]-07 10 MG Orally Once a day Dec 28, 2013 Sep 22, 2015 1 tablet as needed Aspir-81 [facility] [address]-57 81 MG Orally Once a day 1 tablet Gabapentin [facility] 40910087107 300 MG Orally BID TAKE 1 CAPSULE BY MOUTH EVERY NIGHT AT BEDTIME Humalog [facility] [address]-46 100 UNIT/ML Subcutaneous TID with meals 40 units Levothyroxine Sodium [facility] [address]-03 200 MCG Orally Once a day with a 50mcg tab Mar 25, 2015 1 tablet on an empty stomach in the morning Clonazepam [facility] [address]-10 1 MG Orally up to twice daily for anxiety as needed Procedures Procedure Coding System Code Date OFFICE VISIT, EST-LOW COMPLEXITY (15 MIN.) CPT-4 37384 Sep 18, 2015 Vital Signs Date/Time: Sep 18, 2015 Temperature 98.4 F Height 70 in Weight 282.8 lbs Blood Pressure Diastolic 60 mm Hg Blood Pressure Systolic 120 mm Hg Cardiac Monitoring Heart Rate 78 /min BMI 40.57 Index Respiratory Rate 16 /min Results No Known Results Summary Purpose eClinicalWorks Submission
--- OUTSIDE RECORDS SUMMARY | 2016-04-23 12:48 | XMS REPORT ---
Author Author Bianca Simmons [facility] eClinicalWorks Address Unknown Phone Unavailable Care Team Providers Care Community Service Director Name Role Phone Bianca Simmons CP Unavailable Allergies, Adverse Reactions, Alerts Substance [...] single manic episode, unspecified 296.00 Active Assessment Hypertension, benign 401.1 Active Assessment Pain in joint, ankle and foot 719.47 Active Assessment Knee pain 719.46 Active Medications Medication Code System Code Instructions Start Date End Date Status Dosage Clonazepam [facility] [address]-88 0.5 MG Orally Six times a day Active As directed Combivent [facility] [address]-61 18-103 MCG/ACT Inhalation Four times a day Active 2 puffs Fluoxetine HCl [facility] [address]-46 60 Mg Orally Once a day Active 1 capsule at hs Hydrochlorothiazide [facility] [address]-86 12.5 Active TAKE ONE TABLET BY MOUTH EVERY DAY Ventolin HFA [facility] [address]-31 108 (90 Base) MCG/ACT Inhalation every 4 hrs Mar 10, 2013 Active 2 puffs as needed Amlodipine Besylate [facility] [address]-45 10 MG Orally Once a day Dec 22, 2013 Active 1 tablet Cyclobenzaprine Comfort Pac [facility] [address]-92 10 MG Combination Inactive as directed Levothyroxine Sodium [facility] [address]-86 175 Active TAKE ONE TABLET BY MOUTH ONCE A DAY, ON AN EMPTY STOMACH, MUST CALL MD FOR APPOINTMENT Cyclobenzaprine HCl [facility] [address]-38 10 MG Orally BID Dec 28, 2013Jan Active 1 tablet as needed Lisinopril [facility] [address]-61 40 MG Orally Once a day Inactive 1 tablet Procedures Procedure Coding System Code Date OFFICE VISIT, EST-LOW COMPLEXITY (15 MIN.) CPT-4 76398 Dec 28, 2013 Vital Signs Date/Time: Dec 28, 2013 Height 70 inches Weight 264.1 lbs Temperature 98.6 F Blood Pressure Diastolic 90 mm Hg Blood Pressure Systolic 138 mm Hg Cardiac Monitoring Heart Rate 60 Beats per Minute BMI 37.89 Index Respiratory Rate 18 per Minute Results No Known Results Summary Purpose eClinicalWorks Submission
--- OUTSIDE RECORDS SUMMARY | 2016-04-23 12:49 | XMS REPORT ---
Author Author Jonelle Guzmán [facility] eClinicalWorks Address Unknown Phone Unavailable Care Team Providers Care Orthopedic Nurse Practitioner Name Role Phone Jonelle Guzmán CP Unavailable [...] Medications Results No Known Results Summary Purpose [facility] Submission
--- OUTSIDE RECORDS SUMMARY | 2016-04-23 12:49 | XMS REPORT ---
Author Author Minal Sharma [facility] eClinicalWorks Address Unknown Phone Unavailable Care Team Providers Care Hematology Nurse Name Role Phone Minal Sharma Unavailable Allergies, Adverse Reactions, Alerts Substance Reaction Event Type Penicillin anaphylaxis Drug Allergy Benadryl throat closes Drug Allergy Problems Problem Type Condition Code Onset Dates Condition Status Problem Secondary polycythemia D75.1 Active Problem Hypothyroidism, unspecified E03.9 Active Problem Chronic obstructive pulmonary disease, unspecified J44.9 Active Problem Bipolar disorder, current episode manic without psychotic features, moderate F31.12 Active Assessment COPD exacerbation J44.1 Active Problem Post-traumatic stress disorder, chronic F43.12 Active Assessment Acute non-recurrent sinusitis, unspecified location J01.90 Active Problem COPD exacerbation J44.1 Active Problem [...] Date End Date Status Dosage Doxycycline Hyclate [facility] [address]-81 100 MG Orally Twice a day Sep 18, 2015 Sep 28, 2015 1 tablet Levothyroxine Sodium [facility] [address]-33 50 MCG Orally Once a day with a 200mcg Nov 01, 2014 1 tablet on an empty stomach in the morning Albuterol Sulfate [facility] [address]-72 (2.5 MG/3ML) 0.083% Inhalation Three times a day Sep 19, 2015 3 ml Nicotrol [facility] [address]-72 10 MG Inhalation max of 16 time(s) a day. No smoking while using the inhaler August 13, 2015 Dec 11, 2015 1 puff as needed Clonazepam [facility] [address]-99 1 MG Orally up to twice daily for anxiety as needed Aspir-81 [facility] [address]-23 81 MG Orally Once a day 1 tablet Ventolin HFA [facility] [address]-87 108 (90 Base) MCG/ACT Inhalation every 4 hrs Mar 10, 2013 2 puffs as needed Cyclobenzaprine HCl [facility] [address]-40 10 MG Orally Once a day Dec 28, 2013 Sep 22, 2015 1 tablet as needed Levemir [facility] [address]-51 100 UNIT/ML Subcutaneous Once a day Oct 25, 2014 50 units Pulmicort Flexhaler [facility] [address]-49 180 MCG/ACT Inhalation Twice a day Sep 19, 2015 1 puff Levothyroxine Sodium [facility] [address]-80 200 MCG Orally Once a day with a 50mcg tab Mar 25, 2015 1 tablet on an empty stomach in the morning Gabapentin [facility] 84502636911 300 MG Orally BID TAKE 1 CAPSULE BY MOUTH EVERY NIGHT AT BEDTIME Humalog [facility] [address]-16 100 UNIT/ML Subcutaneous TID with meals 40 units Procedures Procedure Coding System Code Date OFFICE VISIT, EST-LOW COMPLEXITY (15 MIN.) CPT-4 97181 Sep 19, 2015 Vital Signs Date/Time: Sep 19, 2015 Temperature 98.6 F Height 70 in Weight 284.12 lbs Blood Pressure Diastolic 100 mm Hg Blood Pressure Systolic 140 mm Hg Cardiac Monitoring Heart Rate 86 /min BMI 40.76 Index Oximetry 97 % Respiratory Rate 26 /min Results No Known Results Summary Purpose eClinicalWorks Submission
--- OUTSIDE RECORDS SUMMARY | 2016-04-23 12:49 | XMS REPORT ---
Author Author Rona Yin [facility] eClinicalWorks Address Unknown Phone Unavailable Care Team Providers Care Strategic Marketing Specialist Name Role Phone Rona Yin CP Unavailable [...] Instructions Start Date End Date Status Dosage Cyclobenzaprine HCl [facility] [address]-26 10 MG Orally BID Dec 28, 2013Mar Active 1 tablet as needed Vital Signs Date/Time: Feb 20, 2014 Height 70 inches Weight 265.8 lbs Temperature 98.3 F Blood Pressure Diastolic 102 mm Hg Blood Pressure Systolic 172 mm Hg Cardiac Monitoring Heart Rate 90 Beats per Minute BMI 38.13 Index Respiratory Rate 16 per Minute Results No Known Results Summary Purpose eClinicalWorks Submission
--- OUTSIDE RECORDS SUMMARY | 2016-04-23 12:49 | XMS REPORT ---
Author Johana Lopes [facility] eClinicalWorks Address Unknown Phone Unavailable Care Team Providers Care Administration Vice President Name Role Phone Johana Palacios CP Unavailable Allergies, Adverse Reactions, Alerts Substance Reaction Event Type Penicillin anaphylaxis Drug Allergy Benadryl throat closes Drug Allergy Problems Problem Type Condition ICD-9 Code Onset Dates Condition Status Problem Chronic post-traumatic headache 339.22 Active Problem Unspecified hypothyroidism 244.9 Active Problem Unspecified constipation 564.00 Active Assessment Anxiety state, unspecified 300.00 Active Problem Affective personality disorder, unspecified 301.10 [...] Start Date End Date Status Dosage Clonazepam [facility] [address]-21 1 MG Orally Three times a day as needed for anxiety as needed NovoLog [facility] [address]-62 100 Subcutaneous TID w/ meals 40 units Lantus [facility] [address]-53 100 UNIT/ML Subcutaneous Once a day Feb 20, 2014 50 units FluvoxaMINE Maleate ER [facility] 28458724700 100 Orally Once a day 1 capsule at bedtime Gabapentin [facility] [address]-73 300 MG Orally at bedtime May 09, 2014 1 capsule Ventolin HFA [facility] [address]-25 108 (90 Base) MCG/ACT Inhalation every 4 hrs Mar 10, 2013 2 puffs as needed Lisinopril [facility] 71250955820 40 Orally Once a day 1 tablet Levothyroxine Sodium [facility] 57403139295 175 TAKE ONE TABLET BY MOUTH ONCE A DAY, ON AN EMPTY STOMACH, MUST CALL MD FOR APPOINTMENT Procedures Procedure Coding System Code Date OFFICE VISIT, EST-MOD. COMPLEXITY (25 MIN) CPT-4 39784 July 31, 2014 Results No Known Results Summary Purpose eClinicalWorks Submission
--- OUTSIDE RECORDS SUMMARY | 2016-04-23 12:49 | XMS REPORT ---
Author Author Jonelle Guzmán [facility] eClinicalWorks Address Unknown Phone Unavailable Care Team Providers Care Mediator Name Role Phone Jonelle Guzmán CP Unavailable [...] Instructions Start Date End Date Status Dosage Blue Eye & Syringes NDC 0 . Dx code E11.65 4 times a day Oct 24, 2015 as directed Results No Known Results Summary Purpose eClinicalWorks Submission
--- OUTSIDE RECORDS SUMMARY | 2016-04-23 12:49 | XMS REPORT ---
Author Author Bianca Simmons Organization eClinicalWorks Address Unknown Phone Unavailable Care Team Providers Care Toy Electric Train Repairer Name Role Phone Bianca Simmons CP Unavailable Allergies No Known Allergies Problems [...] Medications No Known Medications Vital Signs Date/Time: Dec 28, 2013 Height 70 inches Weight 264.1 lbs Temperature 98.6 F Blood Pressure Diastolic 90 mm Hg Blood Pressure Systolic 138 mm Hg Cardiac Monitoring Heart Rate 60 Beats per Minute BMI 37.89 Index Respiratory Rate 18 per Minute Results No Known Results Summary Purpose eClinicalWorks Submission
--- OUTSIDE RECORDS SUMMARY | 2016-04-23 12:49 | XMS REPORT ---
Author Author Jonelle Guzmán [facility] eClinicalWorks Address Unknown Phone Unavailable Care Team Providers Care Transit Planning Manager Name Role Phone Jonelle Guzmán CP Unavailable [...]
--- OUTSIDE RECORDS SUMMARY | 2016-04-23 12:49 | XMS REPORT ---
Author Johana Lopes [facility] eClinicalWorks Address Unknown Phone Unavailable Care Team Providers Care Jeeper Operator Name Role Phone Johana Palacios CP Unavailable [...] single manic episode, unspecified 296.00 Active Assessment Affective personality disorder, unspecified 301.10 Active Assessment Anxiety state, unspecified 300.00 Active Assessment Bipolar I disorder, single manic episode, unspecified 296.00 Active Medications Medication Code System Code Instructions Start Date End Date Status Dosage Gabapentin [facility] [address]-89 300 MG Orally at bedtime May 09, 2014 1 capsule Propranolol HCl [facility] [address]-02 10 MG Orally up to Twice a day as needed for anxiety May 09, 2014 1 tablet Levothyroxine Sodium [facility] 23429481936 175 TAKE ONE TABLET BY MOUTH ONCE A DAY, ON AN EMPTY STOMACH, MUST CALL MD FOR APPOINTMENT Hydrochlorothiazide [facility] [address]-67 12.5 Orally Twice every day take one tablet by mouth every day FluvoxaMINE Maleate ER [facility] [address]-29 100 MG Orally Once a day May 1 capsule at bedtime Lantus [facility] [address]-91 100 UNIT/ML Subcutaneous Once a day Feb 20, 2014 30 units NovoLog [facility] [address]-76 100 UNIT/ML Subcutaneous TID w/ meals Feb 20, 2014 25units Cyclobenzaprine HCl [facility] [address]-45 10 MG Orally BID Dec 28, 2013 May 21, 2014 1 tablet as needed Ventolin HFA [facility] [address]-21 108 (90 Base) MCG/ACT Inhalation every 4 hrs Mar 10, 2013 2 puffs as needed Lisinopril [facility] [address]-64 40 MG Orally Once a day Feb 20, 2014 1 tablet Clonazepam [facility] [address]-64 1 MG Orally Three times a day as needed for anxiety as needed Procedures Procedure Coding System Code Date OFFICE VISIT, EST-MOD. COMPLEXITY (25 MIN) CPT-4 14682 May 09, 2014 Vital Signs Date/Time: May 09, 2014 Height 70 in Weight 268 lbs Temperature 98.4 F Blood Pressure Diastolic 102 mm Hg Blood Pressure Systolic 162 mm Hg Cardiac Monitoring Heart Rate 88 /min BMI 38.45 Index Respiratory Rate 20 /min Results No Known Results Summary Purpose eClinicalWorks Submission
--- OUTSIDE RECORDS SUMMARY | 2016-04-23 12:49 | XMS REPORT ---
Author Author Bianca Simmons Organization eClinicalWorks Address Unknown Phone Unavailable Care Team Providers Care Social Work Faculty Member Name Role Phone Bianca Simmons CP Unavailable [...] Date End Date Status Dosage Amlodipine Besylate [facility] [address]-86 10 MG Orally Once a day Dec 22, 2013 Active 1 tablet Vital Signs Date/Time: Oct 31, 2013 Height 70 inches Weight 271 lbs Temperature 98.2 F Respiratory Rate 18 per Minute Cardiac Monitoring Heart Rate 70 Beats per Minute BMI 38.88 Index Results No Known Results Summary Purpose eClinicalWorks Submission
--- OUTSIDE RECORDS SUMMARY | 2016-04-23 12:49 | XMS REPORT ---
Author Author Rona Yin [facility] eClinicalWorks Address Unknown Phone Unavailable Care Team Providers Care Pharmacy Delivery Driver Name Role Phone Rona Yin CP Unavailable [...]
--- OUTSIDE RECORDS SUMMARY | 2016-04-23 12:49 | XMS REPORT ---
Author Author Jonelle Guzmán [facility] eClinicalWorks Address Unknown Phone Unavailable Care Team Providers Care Carton Filler Name Role Phone Jonelle Guzmán CP Unavailable [...]
--- OUTSIDE RECORDS SUMMARY | 2016-04-23 12:49 | XMS REPORT ---
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 Problem Unspecified constipation 564.00 Active Problem Chronic post-traumatic headache 339.22 Active Problem Bipolar disorder, unspecified F31.9 Active Problem Type 2 diabetes mellitus with hyperglycemia E11.65 Active Problem Hypothyroidism, unspecified E03.9 Active Problem Hereditary and idiopathic neuropathy, unspecified G60.9 Active Problem Hypersomnia, unspecified G47.10 Active Problem Bipolar I disorder, single manic episode, unspecified 296.00 Active Problem Diabetes mellitus without mention of complication, type II or unspecified type, uncontrolled 250.02 Active Problem Hypertension, benign 401.1 Active Problem Anxiety state, unspecified 300.00 Active Problem Unspecified hereditary and idiopathic peripheral neuropathy 356.9 Active Problem Hypersomnia, unspecified 780.54 Active Problem COPD 496 Active Problem Constipation, unspecified K59.00 Active Problem Affective personality disorder, unspecified 301.10 Active Problem Essential (primary) hypertension I10 Active Medications Medication Code System Code Instructions Start Date End Date Status Dosage Levothyroxine Sodium [facility] [address]-75 200 MCG Orally Once a day with a 200mcg Nov 01, 2014 1 tablet on an empty stomach in the morning Results No Known Results Summary Purpose eClinicalWorks Submission
--- OUTSIDE RECORDS SUMMARY | 2016-04-23 12:49 | XMS REPORT ---
Author Author Johana Palacios Organization eClinicalWorks Address Unknown Phone Unavailable Care Team Providers Care Land Leases And Rentals Manager Name Role Phone Johana Palacios CP Unavailable [...]
--- OUTSIDE RECORDS SUMMARY | 2016-04-23 12:49 | XMS REPORT ---
Author Author Jonelle Guzmán [facility] eClinicalWorks Address Unknown Phone Unavailable Care Team Providers Care Foley Artist Name Role Phone Jonelle Guzmán CP Unavailable [...] Instructions Start Date End Date Status Dosage Weed & Syringes NDC 0 . Dx code E11.65 3 Times a day Oct 24, 2015 as directed Results No Known Results Summary Purpose eClinicalWorks Submission
--- OUTSIDE RECORDS SUMMARY | 2016-04-23 12:49 | XMS REPORT ---
Author Author Johana Palacios Organization eClinicalWorks Address Unknown Phone Unavailable Care Team Providers Care Sole Cutter Name Role Phone Johana Palacios CP Unavailable [...] Date End Date Status Dosage Clonazepam [facility] [address]-15 1 MG Orally Three times a day as needed for anxiety as needed Results No Known Results Summary Purpose eClinicalWorks Submission
--- OUTSIDE RECORDS SUMMARY | 2016-04-23 12:50 | XMS REPORT ---
Author Jonelle Head [facility] eClinicalWorks Address Unknown Phone Unavailable Care Team Providers Care Dampener Operator Name Role Phone Jonlele Guzmán Unavailable Allergies No Known Allergies Problems [...] Start Date End Date Status Dosage Humalog [facility] [address]-77 100 UNIT/ML Subcutaneous TID with meals 40 units Levemir [facility] [address]-97 100 UNIT/ML Subcutaneous Once a day Oct 25, 2014 50 units [place] [facility] [place] 0 . Dx code E11.65 3 Times a day Oct 24, 2015 as directed Levothyroxine Sodium [facility] [address]-78 200 MCG Orally Once a day with a 50mcg tab Mar 25, 2015 1 tablet on an empty stomach in the morning Clonazepam [facility] [address]-49 1 MG Orally up to twice daily for anxiety as needed Ventolin HFA [facility] [address]-08 108 (90 Base) MCG/ACT Inhalation every 4 hrs Mar 10, 2013 2 puffs as needed Pulmicort Flexhaler [facility] [address]-83 180 MCG/ACT Inhalation Twice a day Sep 19, 2015 1 puff Albuterol Sulfate [facility] [address]-61 (2.5 MG/3ML) 0.083% Inhalation Three times a day Sep 19, 2015 3 ml Aspir-81 [facility] [address]-93 81 MG Orally Once a day 1 tablet Levothyroxine Sodium [facility] [address]-02 50 MCG Orally Once a day with a 200mcg Nov 01, 2014 1 tablet on an empty stomach in the morning Gabapentin [facility] 06889623313 300 MG Orally BID TAKE 1 CAPSULE BY MOUTH EVERY NIGHT AT BEDTIME Nicotrol [facility] [address]-22 10 MG Inhalation max of 16 time(s) a day. No smoking while using the inhaler August 13, 2015 Dec 11, 2015 1 puff as needed Procedures Procedure Coding System Code Date COMPLETE CBC W/AUTO DIFF WBC CPT-4 11646 Oct 25, 2015 Results No Known Results Summary Purpose eClinicalWorks Submission
--- OUTSIDE RECORDS SUMMARY | 2016-04-23 12:50 | XMS REPORT ---
Author Author Johana Palacios Organization [employer] Address Unknown Phone Unavailable Care Team Providers Care Director Telecommunications Name Role Phone Johana Palacios CP Unavailable [...]
--- OUTSIDE RECORDS SUMMARY | 2016-04-23 12:50 | XMS REPORT | Continuity of Care Document ---
Author Author [facility] Organization [facility] Address Unknown Phone Unavailable Support Name Relationship Address Phone LADI TERESA APRN Caregiver [address] [place] [address] Unavailable EM LLOYD MD Caregiver [address] [place] [address] Unavailable JAYDA GANN Next Of Kin [address] [place] [address] C Insurance Providers Guarantor Manuel Gann Address [address] [place] [address] C Email [email or web address] Payer [facility] Policy Number [id number] Subscriber's Name Manuel Gann Relationship 18 Self Group Number [id number] Advance Directives Directive Response Recorded Date/Time Advanced Directives Type None 08/15/15 10:25am Chief Complaint and Reason for Visit Chief Complaint Hypertension Reason for Visit Hypertensive urgency Seizure-like activity Polycythemia Problems Active Problems Medical Problem Onset Date [...] tobacco in the last 12 months Yes 05/21/2012 3:23pm Not Applicable Not Applicable Tobacco Usage smoke 12/07/2013 2:24pm Not Applicable Not Applicable Query Response Start Date Stop Date Smoking Status Current every day smoker Hospital Discharge Instructions No hospital discharge instructions. Plan of Care Discharge Date 08/15/15 12:40pm Disposition 01 DISCHARGED HOME, SELF-CARE Condition at Discharge Stable Instructions/Education Provided High Blood Pressure Prescriptions See Medication Section Referrals LADI TERESA APRN Address: [address] [place] [address] [phone] Note: Follow-up for reevaluation Additional Instructions/Education Follow-up with laboratory for your therapeutic phlebotomy. Care Plan and Goals Physician Care Plan Problem: Hypertensive urgency, polycythemia, seizure-like activity Goal: Follow up with primary care provider Instructions: Take medications and follow care plan as discussed/written Functional Status No functional status results. Allergies, Adverse Reactions, Alerts Allergen Type Severity Reaction Status Last Updated diphenhydramine HCl Allergy Unknown THROAT SWELLING AND INSOMNIA Active Penicillin Allergy Unknown Active 08/15/15 Immunizations Query Response on File Recorded Date/Time Hx Influenza Vaccination No 12/07/13 1:08pm Hx Pneumococcal Vaccination No 12/07/13 1:08pm Hx Tetanus, Diptheria, Pertussis NO BROKEN SKIN 12/07/13 1:08pm Hx Influenza Vaccination No 12/07/13 1:08pm Hx Tetanus, Diptheria, Pertussis NO BROKEN SKIN 12/07/13 1:08pm Vital Signs Acute Vital Signs Vital Response Date/Time Temperature (Fahrenheit) 98.2 deg F (96.8 - 99.1) 08/15/2015 12:40pm Temperature (Calculated Celsius) 36.39147 degrees C (36.0 - 37.3) 08/15/2015 12:40pm Pulse Rate (adult) 81 bpm (60 - 100) 08/15/2015 12:40pm Respiratory Rate 19 breaths/min (10 - 20) 08/15/2015 12:40pm O2 Sat by Pulse Oximetry 95 % (90 - 100) 08/15/2015 12:40pm Blood Pressure 150/79 mm Hg 08/15/2015 12:40pm Height (Feet) 5 feet 08/15/2015 10:20am Height (Inches) 9.00 inches 08/15/2015 10:20am Weight (Kilograms) 130.000 kg 08/15/2015 10:20am Body Mass Index (BMI) 42.0 08/15/2015 10:20am Results Laboratory Results Test Name Result Units Flags Reference Collection Date/Time Result Date/ Time Comments White Blood Count 8.0 T/MM3 4.5-11.0 08/15/2015 10:50am 08/15/2015 11: 22am Red Blood Count 5.37 M/MM3 H 4.00-5.20 08/15/2015 10:50am 08/15/2015 11: 22am Hemoglobin 17.4 GM/DL H 12-16 08/15/2015 10:50am 08/15/2015 11:22am Hematocrit 50.5 % H 36-46 08/15/2015 10:50am 08/15/2015 11:22am Mean Corpuscular Volume 94.0 UM3 80-100 08/15/2015 10:50am 08/15/2015 11:22am Mean Corpuscular Hemoglobin 32.4 UUG 26-34 08/15/2015 10:50am 2015 11:22am Mean Corpuscular Hemoglobin Concent 34.5 GM/DL 31-37 08/15/2015 10:50am 08/15/2015 11:22am RDW Standard Deviation 47.1 FL 36.9-50.2 08/15/2015 10:50am 08/15/2015 11:22am Platelet Count 202 T/MM3 130-400 08/15/2015 10:50am 08/15/2015 11:22am Mean Platelet Volume 10.4 UM3 9.4-12.4 08/15/2015 10:50am 08/15/2015 11 :22am Neutrophils (%) (Auto) 63.6 % 33-66 08/15/2015 10:50am 08/15/2015 11: 22am Lymphocytes (%) (Auto) 28.1 % 23-45 08/15/2015 10:50am 08/15/2015 11: 22am Monocytes (%) (Auto) 5.9 % 0-9.0 08/15/2015 10:50am 08/15/2015 11:22am Eosinophils (%) (Auto) 1.6 % 0-4 08/15/2015 10:50am 08/15/2015 11:22am Basophils (%) (Auto) 0.5 % 0-2 08/15/2015 10:50am 08/15/2015 11:22am Immature Granulocyte % (Auto) 0.3 % 0.0-0.5 08/15/2015 10:50am 2015 11:22am Absolute Neutrophils (auto) 5.1 T/MM3 1.8-7.7 08/15/2015 10:50am 2015 11:22am Absolute Lymphocytes (auto) 2.2 T/MM3 1-4.8 08/15/2015 10:50am 2015 11:22am Absolute Monocytes (auto) 0.5 T/MM3 0-0.8 08/15/2015 10:50am 2015 11:22am Absolute Eosinophils (auto) 0.1 T/MM3 0-0.5 08/15/2015 10:50am 2015 11:22am Absolute Basophils (auto) 0.0 T/MM3 0-0.2 08/15/2015 10:50am 2015 11:22am Absolute Immature Granulocyte (auto 0.02 T/MM3 0.00-0.03 08/15/2015 10: 50am 08/15/2015 11:22am Icterus Index < 2 0-7 08/15/2015 10:50am [...] Female (Non-): 3.0-18.6 ng/ml; Males: 3.7-17.9 ng/ml Name: MANUEL GANN Unit #: [id number] : 1955 Sex: F Admit Date: Loc / Svc: ED Discharge Date: DIAGNOSTIC IMAGING REPORT Report #: [id number] [facility] FIORELLA Mahmood Indication: ITS.REASON: hypertension, headache, question seizures evaluate for stroke PROCEDURE: CT HEAD W/O CONTRAST: Encounter: Initial Comparison: November 02, 2007 Technique: Axial CT images through the head were performed without contrast. FINDINGS: The ventricles are of normal size, shape, and contour for the patient's age. There are scattered areas of low attenuation in the white matter which most likely represent changes from chronic microvascular ischemia. The brainstem, cerebellum, and cerebral hemispheres otherwise have a normal morphology and CT attenuation. There is no evidence of midline displacement. No hemorrhage, signs of acute territorial stroke, mass effect, mass lesions, or edema is evident. The visualized portions of the skull base, midface, and calvarium demonstrate no abnormality. The paranasal sinuses are well aerated and free of significant disease. The tympanic and mastoid cavities appear normal. IMPRESSION: No acute intracranial abnormality or hemorrhage. . Procedures No known history of procedures. Encounters Encounter Location Arrival/Admit Date Discharge/Depart Date Attending Provider Registered Emergency Room [facility] 08/15/15 10:20am EM LLOYD MD Recent Diagnosis
--- OUTSIDE RECORDS SUMMARY | 2016-04-23 12:50 | XMS REPORT ---
Author Author Johana Palacios Organization eClinicalWorks Address Unknown Phone Unavailable Care Team Providers Care Radiologic Technologist Name Role Phone Johana Palacios CP Unavailable [...]
--- OUTSIDE RECORDS SUMMARY | 2016-04-23 12:50 | XMS REPORT ---
Author Author Jonelle Gzumán [facility] eClinicalWorks Address Unknown Phone Unavailable Care Team Providers Care Supervisor Jewelry Department Name Role Phone Jonelle Guzmán CP Unavailable [...]
--- OUTSIDE RECORDS SUMMARY | 2016-04-23 12:50 | XMS REPORT ---
Author Author Jonelle Guzmán [facility] eClinicalWorks Address Unknown Phone Unavailable Care Team Providers Care Subway Car Repairer Name Role Phone Jonelle Guzmán CP [...]
--- OUTSIDE RECORDS SUMMARY | 2016-04-23 12:50 | XMS REPORT ---
Author Jonelle Head [employer] Address Unknown Phone Unavailable Care Team Providers Care Mobile Heavy Equipment Mechanic Name Role Phone Jonelle Guzmán CP Unavailable Allergies, Adverse Reactions, Alerts Substance Reaction Event Type Penicillin anaphylaxis Drug Allergy Benadryl throat closes Drug Allergy Problems Problem Type Condition Code Onset Dates Condition Status Problem Diabetes mellitus without mention of complication, type II or unspecified type, uncontrolled 250.02 Active Assessment Nausea R11.0 Active Problem COPD 496 Active Assessment Secondary polycythemia D75.1 Active Problem Affective personality disorder, unspecified 301.10 Active Problem Hypersomnia, unspecified 780.54 Active Problem Unspecified hereditary and idiopathic peripheral neuropathy 356.9 Active Problem Hypothyroidism, unspecified E03.9 Active Problem Chronic obstructive pulmonary disease, unspecified J44.9 Active Assessment Anxiety disorder, unspecified F41.9 Active Assessment Hypothyroidism, unspecified E03.9 Active Problem Type 2 diabetes mellitus with hyperglycemia E11.65 Active Assessment Chronic obstructive pulmonary disease, unspecified J44.9 Active Problem Essential (primary) hypertension I10 Active Problem Constipation, unspecified K59.00 Active Problem Secondary polycythemia D75.1 Active Problem Anxiety disorder, unspecified F41.9 Active Problem Chronic post-traumatic headache 339.22 Active Problem Unspecified constipation 564.00 Active Assessment Essential (primary) hypertension I10 Active Assessment Type 2 diabetes mellitus with hyperglycemia E11.65 Active Problem Anxiety state, unspecified 300.00 Active Problem Bipolar I disorder, single manic episode, unspecified 296.00 Active Problem Unspecified hypothyroidism 244.9 Active Problem Hypertension, benign 401.1 Active Medications Medication Code System Code Instructions Start Date End Date Status Dosage Ventolin HFA [facility] [address]-28 108 (90 Base) MCG/ACT Inhalation every 4 hrs Mar 10, 2013 2 puffs as needed Humalog [facility] [address]-64 100 UNIT/ML Subcutaneous tid 45 u tid Flexeril [facility] [address]-34 5 MG Orally Once a day 1 tablet Fluvoxamine Maleate [facility] [address]-03 100 MG Orally Twice a day Oct 23, 2014 1 tablet Zofran ODT [facility] [address]-64 4 MG Orally BID as needed Jan 16, 2015 1 tab Levemir [facility] [address]-41 100 UNIT/ML Subcutaneous Once a day Oct 25, 2014 55 units Hydrochlorothiazide [facility] 55631714128 12.5 Orally Twice every day take one tablet by mouth every day Aspir-81 [facility] [address]-39 81 MG Orally Once a day 1 tablet Clonazepam [facility] [address]-64 1 MG Orally Three times a day as needed for anxiety as needed Levothyroxine Sodium [facility] [address]-35 25 MCG Orally Once a day with an additional 200 mcg take one tablet by mouth once a day, on an empty stomach, * Levothyroxine Sodium [facility] [address]-98 25 MCG Orally Once a day with a 200mcg Nov 01, 2014 1 tablet on an empty stomach in the morning Esomeprazole Magnesium [facility] [address]-68 40 MG Orally Once a day Nov 27, 2014 1 capsule Gabapentin [facility] [address]-32 300 MG Orally at bedtime May 09, 2014 1 capsule Lisinopril [facility] [address]-50 40 MG Orally Once a day 1 tablet Procedures Procedure Coding System Code Date HEMOGLOBIN A1C, IN HOUSE CPT-4 66022 Jan 16, 2015 COMPLETE CBC W/AUTO DIFF WBC CPT-4 11227 Jan 16, 2015 OFFICE VISIT, EST-LOW COMPLEXITY (15 MIN.) CPT-4 15569 Jan 16, 2015 IH CMP CPT-4 10803 Jan 16, 2015 TSH CPT-4 56202 Jan 16, 2015 Vital Signs Date/Time: Jan 16, 2015 Height 70 in Weight 289 lbs Temperature 98.0 F Blood Pressure Diastolic 97 mm Hg Blood Pressure Systolic 145 mm Hg Cardiac Monitoring Heart Rate 80 /min BMI 41.46 Index Respiratory Rate 18 /min Results Name Result Date Reference Range Unit Abnormality Flag TSH ----TSH 67.76 20150116 0.35-4.94 uIU/mL H In House CMP ----Total Protein 7.4 20150116 6.4 - 8.1 G/DL ----Glucose 151* 20150116 73 - 118 mg/DL ----Chloride 97* 62554591 98 - 108 mmol/L ----Albumin 3.6 03862934 3.3 - 5.5 g/DL ----BUN 12 92680474 7 - 22 mg/DL ----Total Bilirubin 0.7 72360826 0.2 - 1.6 mg/DL ----Calcium 9.2 76272054 8.0 - 10.3 mg/DL ----AST 27 17916279 11 - 38 u/L ----Sodium 138 02947277 128 - 145 mmol/L ----CO2 30 14832311 18 - 33 mmol/L ----Potassium 4.7 18974974 3.6 - 5.1 mmol/L ----ALT 18 92100970 10 - 47 u/L ----Creatinine 0.8 43245941 0.6 - 1.2 mg/DL ----Alkaline Phosphatase 59 77982247 53 - 128 u/L In House HB A1c ----Hemoglobin A1c 9.2 20911626 CBC With Platelet and Differential ----MCHC 34.4 63387135 32.0-36.0 g/dL ----MCH 33.7 52098897 27.0-32.0 pg H ----MPV 10.4 12431992 8.8-14.8 fL ----RDW 14.5 81039569 11.5-14.5 % ----Eosinophils 2 21744369 0-4 % ----Basophils 1 06463155 0-2 % ----Immature Granulocytes 0.3 16440962 0.0-1.0 % ----Absolute Neutrophils 6.09 70562094 1.90-7.00 10*3 ----Platelet Count 231 00219217 150-400 K/uL ----Absolute Eosinophils 0.17 35742787 0.00-0.50 10*3 ----HCT 51.4 53924207 37.0-47.0 % H ----Absolute Basophils 0.05 73667129 0.00-0.20 10*3 ----MCV 97.9 78608503 82.0-99.0 fL ----RBC 5.25 06399127 4.00-5.20 10*6/uL H ----Absolute Lymphocytes 2.68 38950607 0.80-3.30 10*3 ----Absolute Monocytes 0.46 18538891 0.30-1.00 10*3 ----HGB 17.7 20150116 12.0-16.0 g/dL H ----Monocytes 5 20150116 4-11 % ----WBC 9.5 42358223 4.8-10.8 K/uL ----Neutrophils 64 08146287 51-75 % ----Lymphocytes 28 99396860 20-46 % Summary Purpose eClinicalWorks Submission
--- OUTSIDE RECORDS SUMMARY | 2016-04-23 12:50 | XMS REPORT ---
Author Author Rona Yin [facility] eClinicalWorks Address Unknown Phone Unavailable Care Team Providers Care Marine Diesel Mechanic Name Role Phone Rona Yin CP Unavailable [...]
--- OUTSIDE RECORDS SUMMARY | 2016-04-23 12:50 | XMS REPORT ---
Author Author Kush Gustafson [facility] eClinicalWorks Address Unknown Phone Unavailable Care Team Providers Care Inspector Boiler Name Role Phone Kush Gustafson CP Unavailable Allergies, Adverse Reactions, Alerts Substance Reaction Event Type Penicillin anaphylaxis Drug Allergy Benadryl throat closes Drug Allergy Problems Problem Type Condition Code Onset Dates Condition Status Problem Affective personality disorder, unspecified 301.10 Active Problem Hypersomnia, unspecified 780.54 Active Problem Unspecified hereditary and idiopathic peripheral neuropathy 356.9 Active Problem Hypothyroidism, unspecified E03.9 Active Assessment Dehydration E86.0 Active Problem Chronic obstructive pulmonary disease, unspecified J44.9 Active Assessment Other chest pain R07.89 Active Assessment Shortness of breath R06.02 Active Problem Type 2 diabetes mellitus with hyperglycemia E11.65 Active Problem Essential (primary) hypertension I10 Active Problem Constipation, unspecified K59.00 Active Problem Secondary polycythemia D75.1 Active Problem Anxiety disorder, unspecified F41.9 Active Problem Chronic post-traumatic headache 339.22 Active Problem Unspecified constipation 564.00 Active Assessment Anxiety disorder, unspecified F41.9 Active Assessment Syncope and collapse R55 Active Problem Anxiety state, unspecified 300.00 Active Problem Bipolar I disorder, single manic episode, unspecified 296.00 Active Problem Unspecified hypothyroidism 244.9 Active Problem Diabetes mellitus without mention of complication, type II or unspecified type, uncontrolled 250.02 Active Assessment Other specified diabetes mellitus without complications E13.9 Active Problem Hypertension, benign 401.1 Active Problem COPD 496 Active Medications Medication Code System Code Instructions Start Date End Date Status Dosage Flexeril [facility] [address]-78 5 MG Orally Once a day 1 tablet Lisinopril [facility] [address]-21 40 MG Orally Once a day 1 tablet Humalog [facility] [address]-80 100 UNIT/ML Subcutaneous tid 45 u tid Clonazepam [facility] [address]-58 1 MG Orally Three times a day as needed for anxiety as needed Gabapentin [facility] 13512255020 300 TAKE 1 CAPSULE BY MOUTH EVERY NIGHT AT BEDTIME Hydrochlorothiazide [facility] 74428004843 12.5 Orally Twice every day take one tablet by mouth every day Fluvoxamine Maleate [facility] [address]-17 100 MG Orally Twice a day Oct 23, 2014 1 tablet Zofran ODT [facility] [address]-42 4 MG Orally BID as needed Jan 16, 2015 1 tab Levothyroxine Sodium [facility] [address]-25 25 MCG Orally Once a day with a 200mcg Nov 01, 2014 1 tablet on an empty stomach in the morning Esomeprazole Magnesium [facility] [address]-70 40 MG Orally Once a day Nov 27, 2014 1 capsule Aspir-81 [facility] [address]-22 81 MG Orally Once a day 1 tablet Levemir [facility] [address]-85 100 UNIT/ML Subcutaneous Once a day Oct 25, 2014 55 units Levothyroxine Sodium [facility] [address]-37 25 MCG Orally Once a day with an additional 200 mcg take one tablet by mouth once a day, on an empty stomach, * Ventolin HFA [facility] [address]-02 108 (90 Base) MCG/ACT Inhalation every 4 hrs Mar 10, 2013 2 puffs as needed Procedures Procedure Coding System Code Date OFFICE VISIT, EST-LOW COMPLEXITY (15 MIN.) CPT-4 43259 Mar 14, 2015 Vital Signs Date/Time: Mar 14, 2015 Cardiac Monitoring Heart Rate 78 /min Height 70 in Temperature 96.7 F Oximetry 95 % Respiratory Rate 18 /min Blood Pressure Diastolic 64 mm Hg Blood Pressure Systolic 118 mm Hg Results No Known Results Summary Purpose eClinicalWorks Submission
--- OUTSIDE RECORDS SUMMARY | 2016-04-23 12:50 | XMS REPORT ---
Author Author Jonelle Guzmán [facility] eClinicalWorks Address Unknown Phone Unavailable Care Team Providers Care Grease Machine Worker Name Role Phone Jonelle Guzmán Unavailable Allergies [...] Instructions Start Date End Date Status Dosage Hydrochlorothiazide [facility] 37577099903 12.5 Orally Twice every day take one tablet by mouth every day Humalog [facility] [address]-02 100 UNIT/ML Subcutaneous TID with meals Oct 23, 2014 40 Units Lantus [facility] [address]-20 100 UNIT/ML Subcutaneous Once a day Feb 20, 2014 50 units Results No Known Results Summary Purpose eClinicalWorks Submission
--- OUTSIDE RECORDS SUMMARY | 2016-04-23 12:50 | XMS REPORT ---
Author Author Johana Palacios Organization [employer] Address Unknown Phone Unavailable Care Team Providers Care Circular Knitter Helper Name Role Phone Johana Palacios CP Unavailable [...] Start Date End Date Status Dosage Clonazepam [facility] [address]-58 1 MG Orally Three times a day as needed for anxiety as needed Results No Known Results Summary Purpose eClinicalWorks Submission
--- OUTSIDE RECORDS SUMMARY | 2016-04-23 12:50 | XMS REPORT ---
Author Author Rona Yin [facility] eClinicalWorks Address Unknown Phone Unavailable Care Team Providers Care Mailing Jogger Name Role Phone Rona Yin CP Unavailable [...]
--- OUTSIDE RECORDS SUMMARY | 2016-04-23 12:50 | XMS REPORT ---
Author Author Jonelle Guzmán [facility] eClinicalWorks Address Unknown Phone Unavailable Care Team Providers Care General Ophthalmologist Name Role Phone Jonelle Guzmán CP Unavailable [...]
--- OUTSIDE RECORDS SUMMARY | 2016-04-23 12:51 | XMS REPORT ---
Author Author Jonelle Guzmán [facility] eClinicalWorks Address Unknown Phone Unavailable Care Team Providers Care Structural Engineering Technician Name Role Phone Jonelle Guzmán CP Unavailable [...]
--- OUTSIDE RECORDS SUMMARY | 2016-04-23 12:51 | XMS REPORT ---
Author Author Kush Gustafson Organization [employer] Address Unknown Phone Unavailable Care Team Providers Care Chemist Biological Name Role Phone Kush Gustafson CP Unavailable Allergies No Known Allergies Problems [...]
--- OUTSIDE RECORDS SUMMARY | 2016-04-23 12:51 | XMS REPORT | Continuity of Care Document ---
Author Author [facility] Organization [facility] Address Unknown Phone Unavailable Support Name Relationship Address Phone YULIET PERDUE MD Caregiver [address] [place] [address] [place] [address] STEVE PECK MD Caregiver [facility] [address] [place] [address] HYACINTH ENGLISH MD Caregiver [address] [place] [address] JAYDA GANN Next Of Kin [address], [place] [id number] C Insurance Providers Payer Name Policy Number Subscriber Name Relationship [facility] Diabetes Ed Manuel Gann 20 Self Advance Directives Directive Response Recorded Date/Time Advanced Directives Type None 12/07/13 1:08pm Problems Medical Problems Problem Onset Date Status ALLERGIC CONJUNCTIVITIS Unknown Active Right ankle sprain Unknown Active Non compliance w medication regimen Unknown Active Acute internal derangement of right knee Unknown Active Lumbar strain Unknown Active Hypertension Unknown Active Right ankle sprain Unknown Active Medications Medication Dose Route Sig Days/Qty Instructions Order Date Discontinued Date Status Levothyroxine Sodium 200 Mcg PO DAILY 10/05/09 08/16/10 Discontinued Clonazepam 1 Mg PO NEEDED 03/21/08 05/17/08 Discontinued Acetaminophen 500 Mg PO NEEDED 10/05/09 08/16/10 Discontinued Quetiapine Fumarate 12.5 NEEDED 10/05/09 06/09/10 Discontinued Fluoxetine Hcl 10 Mg PO DAILY 06/09/10 08/16/10 Discontinued Lorazepam 0.5 Mg PO TWICE A DAY 06/09/10 08/16/10 Discontinued [Propanolol] 1 Tab PO DAILY 06/09/10 08/16/10 Discontinued Lorazepam 0.5 Mg PO THREE TIMES A DAY 08/16/10 10/16/10 Discontinued Levothyroxine Sodium 150 Mcg PO DAILY 08/16/10 08/03/11 Discontinued Clonazepam 1 Mg PO NEEDED 10/16/10 Active Lisinopril/Hydrochlorothiazide 1 Tab PO DAILY 10/16/10 05/21/12 Discontinued Metformin Hcl 1,000 Mg PO TWICE A DAY 10/16/10 02/18/11 Discontinued Lisinopril 20 Mg PO DAILY 10/16/10 05/21/12 Discontinued Lovastatin 20 Mg PO DAILY 10/16/10 05/21/12 Discontinued Dextrose 1 Tab.chew PO NEEDED 10/16/10 05/21/12 Discontinued Insulin Aspart 6 U SQ THREE TIMES A DAY 10/16/10 02/18/11 Discontinued Insulin Glargine 20 U SQ BEDTIME 10/16/10 02/18/11 Discontinued [Saphris] 10 Mg SL NEEDED 02/18/11 05/21/12 Discontinued Metoprolol Tartrate 25 Mg PO DAILY 08/03/11 05/21/12 Discontinued Lovastatin 20 Mg PO DAILY 08/03/11 05/21/12 Discontinued Insulin Aspart 15 U SQ BEFORE MEALS 08/03/11 05/21/12 Discontinued Insulin Glargine 45 U SQ BEDTIME 08/03/11 05/21/12 Discontinued Levothyroxine Sodium 175 Mcg PO DAILY 08/03/11 Active Desvenlafaxine Succinate 100 Mg PO DAILY 05/21/12 06/16/12 Discontinued Lamotrigine 25 Mg PO DAILY 05/21/12 06/16/12 Discontinued Lisinopril 40 Mg PO 06/16/12 Active Hydrochlorothiazide 25 Mg PO 06/16/12 Active Cyclobenzaprine HCl 1 Tab PO THREE TIMES A DAY For SPASMS 30 Qty Active Amlodipine Besylate 10 Mg PO DAILY 15 Qty 12/07/13 Active Social History Social History Problem Response Recorded Date/Time Smoking Status Current every day smoker 12/07/2013 1:08pm When did patient START smoking? 1 PACK/DAY 12/07/2013 1:08pm Chewing Tobacco Status No 03/02/2013 6:36pm Hx Substance Use No 12/07/2013 1:08pm Hx Alcohol Use No 12/07/2013 1:08pm Has the pt used tobacco in the last 12 months Yes 05/21/2012 3:23pm Query Response Start Date Stop Date Smoking Status Current every day smoker Hospital Discharge Instructions No hospital discharge instructions. Plan of Care No plan of care. Functional Status Query Response Date Recorded Physical Hygiene Self December 07, 2013 1:08pm Disabilities None December 07, 2013 1:08pm Devices Used None December 07, 2013 1:08pm Dressing Self December 07, 2013 1:08pm Ambulation Self December 07, 2013 1:08pm Diet Self December 07, 2013 1:08pm Mental Status Alert Oriented December 07, 2013 1:08pm Disabilities None December 07, 2013 1:08pm Devices Used None December 07, 2013 1:08pm Physical Hygiene Self December 07, 2013 1:08pm Dressing Self December 07, 2013 1:08pm Ambulation Self December 07, 2013 1:08pm Diet Self December 07, 2013 1:08pm Allergies, Adverse Reactions, Alerts Allergen Type Severity Reaction Status Last Updated diphenhydramine HCl Allergy Unknown THROAT SWELLING AND INSOMNIA Active Penicillin Allergy Unknown Active 12/07/13 Immunizations Name Given Type Hx Influenza Vaccination No Historical Hx Pneumococcal Vaccination No Historical Hx Tetanus, Diptheria, Pertussis NO BROKEN SKIN Historical Hx Influenza Vaccination No Historical Hx Tetanus, Diptheria, Pertussis NO BROKEN SKIN Historical Vital Signs Acute Vital Signs Vital Response Date/Time Temperature (Fahrenheit) 98.8 deg F (96.8 - 99.1) Temperature (Calculated Celsius) 37.06426 degrees C (36.0 - 37.3) Pulse Rate (adult) 70 bpm (60 - 100) Respiratory Rate 16 breaths/min (10 - 20) O2 Sat by Pulse Oximetry 90 % (90 - 100) Blood Pressure 157/88 mm Hg Height 5 ft 10 in Weight 272 lb Body Mass Index 39.0 kg/m^2 Results Test Source Date Result Interp. Ref. Range Comments Alanine Aminotransferase (ALT/SGPT) June 16, 2012 8:41pm 30 U/L N 9-52 Albumin June 16, 2012 8:41pm 3.9 G/DL N 3.5-5.0 Albumin/Globulin Ratio June 16, 2012 8:41pm 1.2 RATIO N 1.1-2.2 Alkaline Phosphatase June 16, 2012 8:41pm 73 U/L N 38-126 Anion Gap June 16, 2012 8:41pm 11 MEQ/L N 5-15 Arterial Blood Base Excess May 21, 2012 12:40pm -1.8 MMOL/L N -2.0- 2.0 Arterial Blood HCO3 May 21, 2012 12:40pm 23 MEQ/L N 22-26 Arterial Blood Oxygen Content May 21, 2012 12:40pm 5 - Arterial Blood Oxygen Saturation May 21, 2012 12:40pm 84.0 % L 95.0- 98.0 Arterial Blood Partial Pressure CO2 May 21, 2012 12:40pm 39 MMHG N 34- 45 Arterial Blood Total CO2 May 21, 2012 12:40pm 24.3 MEQ/L N 23-27 Arterial Blood pH May 21, 2012 12:40pm 7.380 N 7.350-7.450 Aspartate Amino Transf (AST/SGOT) June 16, 2012 8:41pm 25 U/L N 14-36 B-Type Natriuretic Peptide May 17, 2008 5:30am 65 PG/ML N 15-100 BUN/Creatinine Ratio June 16, 2012 8:41pm 18 RATIO N 6-26 Band Neutrophils # May 24, 2012 5:15am 0.2 T/MM3 - Band Neutrophils % May 24, 2012 5:15am 1.0 % N 0-6 Basophils # (Auto) June 16, 2012 8:41pm 0.0 T/MM3 N 0-0.2 Basophils (%) (Auto) June 16, 2012 8:41pm 0.4 % N 0-2 Blood Urea Nitrogen June 16, 2012 8:41pm 14.0 MG/DL N 7-17 Calcium Level June 16, 2012 8:41pm 9.6 MG/DL N 8.4-10.2 Calculated Osmolality June 16, 2012 8:41pm 280 MOSM/KG N 261-280 Carbon Dioxide Level June 16, 2012 8:41pm 27 MEQ/L N 22-30 Chlamydia Direct Antigen Assay April 09, 2008 9:45pm Negative - Chloride Level June 16, 2012 8:41pm 106 MEQ/L N 98-107 Cholesterol Level April 21, 2011 9:05am 233 MG/DL H 132-199 Cholesterol/HDL Ratio April 21, 2011 9:05am 4.5 RATIO H 0-4.0 Conjugated Bilirubin June 16, 2012 8:41pm 0.00 MG/DL N 0.00-0.30 Creatinine June 16, 2012 8:41pm 0.8 MG/DL N 0.7-1.2 Differential Total Cells Counted November 02, 2007 7:06pm 100 % - Eosinophils # (Auto) June 16, 2012 8:41pm 0.1 T/MM3 N 0-0.5 Eosinophils # (Manual) May 21, 2012 10:30am 0.2 T/MM3 N 0-0.5 Eosinophils % (Manual) May 21, 2012 10:30am 1.0 % N 0-4 Eosinophils (%) (Auto) June 16, 2012 8:41pm 1.4 % N 0-4 Free Thyroxine October 28, 2010 11:04am 1.53 NG/DL N 0.78-2.19 Globulin June 16, 2012 8:41pm 3.3 G/DL N 2.4-3.6 Glucose Level June 16, 2012 8:41pm 140 MG/DL H 65-110 Hematocrit June 16, 2012 8:41pm 47.2 % H 36-46 Hemoglobin June 16, 2012 8:41pm 16.2 GM/DL H 12-16 Hemoglobin A1c May 23, 2012 5:05am 6.8 % N 6-7 <6.0 NON-DIABETIC RANGE6.0-7.0 ADA THERAPEUTIC RANGE >7.0 ACTION SUGGESTED Human Chorionic Gonadotropin, Qual April 09, 2008 7:11pm Negative - LDL Cholesterol, Calculated April 21, 2011 9:05am 181 H 66-159 Lipase April 09, 2008 7:11pm 129 U/L N 23-300 Lymphocytes # (Auto) June 16, 2012 8:41pm 3.0 T/MM3 N 1-4.8 Lymphocytes # (Manual) May 24, 2012 5:15am 1.0 T/MM3 N 1-4.8 Lymphocytes % (Manual) May 24, 2012 5:15am 6.0 % L 23-45 Lymphocytes (%) (Auto) June 16, 2012 8:41pm 32.5 % N 23-45 Mean Corpuscular Hemoglobin June 16, 2012 8:41pm 32.3 UUG N 26-34 Mean Corpuscular Hemoglobin Concent June 16, 2012 8:41pm 34.3 GM/DL N 31- 37 Mean Corpuscular Volume June 16, 2012 8:41pm 94.2 UM3 N 80-100 Mean Platelet Volume June 16, 2012 8:41pm 9.6 UM3 N 9.4-12.4 Monocytes # (Auto) June 16, 2012 8:41pm 0.8 T/MM3 N 0-0.8 Monocytes # (Manual) May 24, 2012 5:15am 0.2 T/MM3 N 0-0.8 Monocytes % (Manual) May 24, 2012 5:15am 1.0 % N 0-9.0 Monocytes (%) (Auto) June 16, 2012 8:41pm 8.0 % N 0-9.0 Neutrophils # (Auto) June 16, 2012 8:41pm 5.4 T/MM3 N 1.8-7.7 Neutrophils # (Manual) May 24, 2012 5:15am 14.7 T/MM3 H 1.8-7.7 Neutrophils % (Manual) May 24, 2012 5:15am 92.0 % H 33-66 Neutrophils (%) (Auto) June 16, 2012 8:41pm 57.4 % N 33-66 Platelet Count June 16, 2012 8:41pm 247 T/MM3 N 130-400 Potassium Level June 16, 2012 8:41pm 3.5 MEQ/L L 3.6-5 RDW Standard Deviation June 16, 2012 8:41pm 44.6 FL N 36.9-50.2 Red Blood Count June 16, 2012 8:41pm 5.01 M/MM3 N 4.00-5.20 Sodium Level June 16, 2012 8:41pm 144 MEQ/L N 134-144 Thyroid Stimulating Hormone (TSH) June 16, 2012 8:41pm 2.18 MIU/L DN 0.47 -4.68 Total Bilirubin June 16, 2012 8:41pm 0.40 MG/DL N 0.20-1.30 Total Protein June 16, 2012 8:41pm 7.2 G/DL N 6.3-8.2 Triglycerides Level April 21, 2011 9:05am 240 MG/DL H 35-135 Troponin I June 16, 2012 8:41pm < 0.012 ng/ml 0-0.12 Unconjugated Bilirubin June 16, 2012 8:41pm 0.10 MG/DL N 0.00-1.10 Urine Amorphous Urates April 09, 2008 8:05pm Few - Has specimen been collected/obtained? Y Urine Bacteria June 16, 2012 9:54pm Trace H - Has specimen been collected/obtained? Y Urine Bilirubin June 16, 2012 9:54pm Negative - Has specimen been collected/obtained? Y Urine Blood June 16, 2012 9:54pm Trace H - Has specimen been collected/ obtained? Y Urine Collection Type June 16, 2012 9:54pm Voided - Has specimen been collected/obtained? Y Urine Color June 16, 2012 9:54pm Yellow - Has specimen been collected/ obtained? Y Urine Culture Indicated August 16, 2010 12:40pm Cult not indicated - Has specimen been collected/obtained? Y Urine Glucose (UA) June 16, 2012 9:54pm Negative - Has specimen been collected/obtained? Y Urine Hyaline Casts August 16, 2010 12:40pm 3-5 /LPF - Has specimen been collected/obtained? Y Urine Ketones June 16, 2012 9:54pm Negative - Has specimen been collected/obtained? Y Urine Leukocyte Esterase June 16, 2012 9:54pm Negative - Has specimen been collected/obtained? Y Urine Microalbumin August 22, 2010 11:00am 154.2 MG/L H 0-17 Urine Mucus August 16, 2010 12:40pm Present - Has specimen been collected/obtained? Y Urine Nitrite June 16, 2012 9:54pm Negative - Has specimen been collected/obtained? Y Urine Protein June 16, 2012 9:54pm Negative - Has specimen been collected/obtained? Y Urine RBC June 16, 2012 9:54pm 0-1 /HPF - Has specimen been collected/ obtained? Y Urine Specific [place] June 16, 2012 9:54pm 1.015 - Has specimen been collected/obtained? Y Urine Squamous Epithelial Cells June 16, 2012 9:54pm Few - Has specimen been collected/obtained? Y Urine Turbidity June 16, 2012 9:54pm Clear - Has specimen been collected/obtained? Y Urine Urobilinogen June 16, 2012 9:54pm Normal EU/DL - Has specimen been collected/obtained? Y Urine WBC June 16, 2012 9:54pm None seen /HPF - Has specimen been collected/obtained? Y Urine pH June 16, 2012 9:54pm 6.0 - Has specimen been collected/ obtained? Y VLDL Cholesterol April 21, 2011 9:05am 48.0 MG/DL H 0-28 White Blood Count June 16, 2012 8:41pm 9.4 T/MM3 N 4.5-11.0 Oxygen Delivery Method (LAB) May 21, 2012 12:40pm Nasal cannula,liters - Glucometer December 07, 2013 2:22pm 254 mg/dL H 65-110 Lab Scanned Report July 01, 2011 10:44pm LAB TEST FORM REQUEST [id number] - EKG May 17, 2008 7:30am Complete - HDL Cholesterol Direct April 21, 2011 9:05am 52 MG/DL N 40-60 Reactive Lymphocytes % May 21, 2012 10:30am 3.0 % H 0-0 Glomerular Filtration Rate Calc June 16, 2012 8:41pm 74 - Reactive Lymphocytes # May 21, 2012 10:30am 0.5 T/MM3 H 0-0 Immature Granulocyte # (Auto) June 16, 2012 8:41pm 0.03 T/MM3 N 0.00- 0.03 Immature Granulocyte % (Auto) June 16, 2012 8:41pm 0.3 % N 0.0-0.5 Arterial Blood pO2 at Patient Temp May 21, 2012 12:40pm 50 MMHG L 80- 100 ZJ-Lcm-Q-Type Natriuretic Peptide August 03, 2011 4:08pm 157 PG/ML N 0- 175 Rule in cut points: <50 years old=450; 50-75 years old=900; >75 years old=1800; When utilizing ProBNP rule-in cut points, adjustment for impaired renal function is typically not required. Urine Microscopic Not Indicated August 03, 2011 5:00pm Not indicated - Has specimen been collected/obtained? Y Wet Prep Cervix April 09, 2008 9:45pm Helicobacter pylori Rapid Urease Gastric Biopsy June 06, 2007 8:03am Name: MANUEL GANN Unit #: [id number] : 1955 Sex: F [place] [facility] [place]: 12/07/13 Signed Report #: [id number] DIAGNOSTIC IMAGING REPORT TYPE OF EXAM: LUMBAR SPINE 2 VIEW Dictated By: NEVIN KIM MD INDICATION: ITS.REASON: fall, pain LUMBAR SPINE 2 VIEW: Comparison: None Findings: There are 5 non rib-bearing lumbar type vertebral bodies present. Mild levoscoliosis. No acute fracture or subluxation. Vertebral body heights are maintained. No significant disk space narrowing. Mild degenerative facet disease at L5-S1. Impression: No acute traumatic abnormality of the lumbar spine. . Procedures No known history of procedures. Encounters Encounter Location Date/Time Departed Emergency Room [facility] 12/07/13 1:02pm Discharged Recurring [facility] 08/15/13 2:19pm Recent Diagnosis
--- OUTSIDE RECORDS SUMMARY | 2016-04-23 12:51 | XMS REPORT ---
Author Author Jonelle Guzmán [facility] eClinicalWorks Address Unknown Phone Unavailable Care Team Providers Care Mat Roller Name Role Phone Jonelle Guzmán CP Unavailable [...] Date Status Dosage Cyclobenzaprine HCl [facility] [address]-88 10 MG Orally Once a day Dec 28, 2013 Sep 22, 2015 1 tablet as needed Results No Known Results Summary Purpose eClinicalWorks Submission
--- OUTSIDE RECORDS SUMMARY | 2016-04-23 12:51 | XMS REPORT ---
Author Author Kush Gustafson [facility] eClinicalWorks Address Unknown Phone Unavailable Care Team Providers Care Echocardiography Technologist Name Role Phone Kush Gustafson CP Unavailable [...] Post-traumatic stress disorder, chronic F43.12 Active Assessment Encounter for immunization Z23 Active Assessment Personal history of nicotine dependence Z87.891 Active Assessment Hypothyroidism, unspecified E03.9 Active Assessment Other fatigue R53.83 Active Problem Chronic post-traumatic headache, not intractable G44.329 Active Problem Constipation, unspecified K59.00 Active Assessment Secondary polycythemia D75.1 Active Problem Essential (primary) hypertension I10 Active Problem Hypersomnia, unspecified G47.10 Active Problem Secondary polycythemia D75.1 Active Medications Medication Code System Code Instructions Start Date End Date Status Dosage Aspir-[address] [facility] [address]-87 81 MG Orally Once a day 1 tablet Clonidine HCl [facility] [address]-92 0.1 MG Orally twice a day 1 tablet at bedtime Pulmicort Flexhaler [facility] [address]-98 180 MCG/ACT Inhalation Twice a day Sep 19, 2015 1 puff Levothyroxine Sodium [facility] [address]-51 25 MCG Orally Once a day with a 200mcg tablet Nov 01, 2014 1 tablet on an empty stomach in the morning Levemir [facility] [address]-81 100 UNIT/ML Subcutaneous Once a day Oct 25, 2014 50 units Fluvoxamine Maleate [facility] [address]-47 50 MG Orally Once a day Oct 23, 2014 1 tablet [place] & Syringes [facility] 0 . Dx code E11.65 4 times a day Oct 24, 2015 as directed Albuterol Sulfate [facility] [address]-55 (2.5 MG/3ML) 0.083% Inhalation Three times a day Sep 19, 2015 [address] [facility] [address]-87 1 MG Orally up to twice daily for anxiety as needed Humalog [facility] [address]-27 100 UNIT/ML Subcutaneous TID with meals [address] [facility] [address] 1.5mg oral daily,then increase to 3mg by mouth every AM June 11, 2015 am Levothyroxine Sodium [facility] [place] [address]-05 200 MCG Orally Once a day Dec 09, 2015 1 tablet on an empty stomach in the morning Gabapentin [facility] 45155248430 300 MG Orally BID TAKE 1 CAPSULE BY MOUTH EVERY NIGHT AT BEDTIME Ventolin HFA [facility] [address]-58 108 (90 Base) MCG/ACT Inhalation every 4 hrs Mar 10, 2013 2 puffs as needed Procedures Procedure Coding System Code Date OFFICE VISIT, EST-LOW COMPLEXITY (15 MIN.) CPT-4 40001 Dec 24, 2015 Vital Signs Date/Time: Dec 24, 2015 Temperature 97.8 F Height 70 in Weight 285.12 lbs Blood Pressure Diastolic 88 mm Hg Blood Pressure Systolic 136 mm Hg Cardiac Monitoring Heart Rate 86 /min BMI 40.91 Index Oximetry 95 % Respiratory Rate 22 /min Results No Known Results Summary Purpose eClinicalWorks Submission
--- OUTSIDE RECORDS SUMMARY | 2016-04-23 12:51 | XMS REPORT ---
Author Author Rona Yin [facility] eClinicalWorks Address Unknown Phone Unavailable Care Team Providers Care Automotive Parts Counter Person Name Role Phone Rona Yin CP Unavailable [...] Medications Results No Known Results Summary Purpose BetweeninicalWorks Submission
--- OUTSIDE RECORDS SUMMARY | 2016-04-23 12:51 | XMS REPORT ---
Author Author Johana Palacios Organization [employer] Address Unknown Phone Unavailable Care Team Providers Care Explosive Operator Grenade Name Role Phone Johana Palacios CP Unavailable [...]
--- OUTSIDE RECORDS SUMMARY | 2016-04-23 12:51 | XMS REPORT ---
Author Author Jonelle Guzmán [facility] eClinicalWorks Address Unknown Phone Unavailable Care Team Providers Care Can Repairer Name Role Phone Jonelle Guzmán CP [...]
--- OUTSIDE RECORDS SUMMARY | 2016-04-23 12:52 | XMS REPORT ---
Author Author Jonelle Guzmán [facility] eClinicalWorks Address Unknown Phone Unavailable Care Team Providers Care Dock Pumper Name Role Phone Jonelle Guzmán CP Unavailable [...]
--- OUTSIDE RECORDS SUMMARY | 2016-04-23 12:52 | XMS REPORT ---
Author Author Jonelle Guzmán [facility] eClinicalWorks Address Unknown Phone Unavailable Care Team Providers Care Washroom Cleaner Name Role Phone Jonelle Guzmán CP Unavailable [...] Date End Date Status Dosage Levothyroxine Sodium [facility][NOTE 3] [address]-40 25 MCG Orally Once a day with an additional 200 mcg take one tablet by mouth once a day, on an empty stomach, * Results No Known Results Summary Purpose eClinicalWorks Submission
--- OUTSIDE RECORDS SUMMARY | 2016-04-23 12:52 | XMS REPORT ---
Author Author Johana Palacios Organization eClinicalWorks Address Unknown Phone Unavailable Care Team Providers Care Transformation Architect Name Role Phone Johana Palacios CP Unavailable [...]
--- NOTE | 2016-04-23 13:23 | ERPDOC ---
Departure Disposition Decision Date: Apr 23, 2016 Disposition Decision Time: 15:25 Disposition: 01 DISCHARGED HOME, SELF-CARE Impression Impression Impression: Primary Impression: Gastroenteritis Severity: Moderate Condition: Stable Seen By: Physician only Referrals: GEOVANI VAZ DO (Family) Patient Instructions: Gastroenteritis (ED) Problems/Meds/Labs Reviewed?: Yes Medications reviewed and manag: Yes Additional Instructions: Dr. Reyes would like you to have 500 mL removed, I am currently arranging for that in infusion therapy. Zofran as needed for nausea, home to rest, follow-up with primary medical physician May use [id number] Imodium as needed for diarrhea according to the instructions on the package Follow up care ordered?: Yes Mental Status: Alert, Oriented Scripts Ondansetron (Zofran Odt) 4 Mg Tab.rapdis 4 MG PO Q6HR Y for NAUSEA &/OR VOMITING, #12 TAB Oral disintegrating tablet Prov: EM LLOYD MD 04/23/16 HPI - Abdominal Pain General Chief Complaint: Nausea,Vomiting,Diarrhea Stated Complaint: NAUSEA,WEAKNESS Time Seen by Provider: 13:23 Source: patient History/Exam Limitations: no limitations HPI - Abdominal Pain Initial Comments Pt with sevra days of N/V with associated diarrhea, now dizzy on standing; here for evaluation Occurred At: home Allergies: Coded Allergies: Penicillins (Verified Allergy, Unknown, 08/15/15) diphenhydramine HCl (Verified Allergy, Unknown, THROAT SWELLING AND INSOMNIA, 08/15/15) Past History Past Medical History Metabolic: diabetes, hypercholesterolemia, hypertension, hypothyroidism Respiratory: COPD Hematologic: other (polycythemia) Psychological: anxiety, bipolar, depression Surgical History General: tonsils Reproductive/: tubal ligation Vaccines Hx Influenza Vaccination: No Hx Pneumococcal Vaccination: No Social History # of Packs/Tins per Day: 1 Review of Systems Constitutional Constitutional: appetite decrease, dizziness, weakness, DENIES: chills, fever ENMT Sinuses: DENIES: congestion Cardiovascular Cardiac: DENIES: chest pain, dyspnea on exertion Pulmonary Respiratory: DENIES: cough, dyspnea, sputum, tachypnea GI Upper Abdomen: nausea, pain, vomiting Lower Abdomen: diarrhea, DENIES: constipation, pain Musculoskeletal General: DENIES: cramps, pain, weakness Endocrine Endocrine: DENIES: heat/cold intolerance Physical Exam General General Nourishment: well nourished, well developed General Body Habitus: well groomed Vitals and Pain Weight: Kilograms: 123.400 Height (feet): 5 Height (inches): 9.00 Triage Pain Scale: RN VS reviewed by Provider: Yes Eyes (brief) Eyes Brief: found: EOMI ENMT (brief) ENMT Brief: FOUND: mucosa moist, normal dentition, NOT FOUND: nasal erythema, pharnyx erythema, tonsillar deviation Neck (brief) Neck: NOT FOUND: adenopathy, spasm, tenderness Respiratory (brief) Respiratory: FOUND: clear all johnson, equal bilaterally, NOT FOUND: rales, wheezes Cardiovascular (brief) Cardiac: FOUND: regular rate, regular rhythm Capillary Refill: <2 sec Abdomen Palpation: FOUND: soft, tender (epigastric), NOT FOUND: Obturator sign, Psoas sign, hepatomegaly, involuntary guarding, voluntary guarding Auscultation: FOUND: normoactive Lymphatic (brief) Lymphatic Brief: NOT FOUND: adenopathy Musculoskeletal (brief) Musculoskeletal Brief: NOT FOUND: spasm, tenderness Integumentary (brief) Integumentary Brief: FOUND: dry, pink, warm, NOT FOUND: rash Neurologic (brief) Neurological Brief: FOUND: CN w/o gross def to obs, motor-no gross deficits, sensory-no gross deficits Psychiatric (brief) Psychiatric Brief: FOUND: alert, oriented Differential Diagnoses Considering: Biliary Colic, Bowel Obstruction, Cholecystitis, Dehydration, Diverticulitis, Food Poisoning, Gastroenteritis, Gastroparesis, Hepatitis, Hyponatremia, Hypokalemia, Hypoglycemia, Pancreatitis, Pyelonephritis, Renal Colic, Sinusitis, UTI, Sigmoid Volvulus, Cecal Volvulus Progress Results/Orders Orders Procedure Category Date Status Time EKG EKG 04/23/16 Taken 13:07 Iv Lock (Ed Only) EDM 04/23/16 Transmitted 13:45 Nothing By Mouth (Ed EDM 04/23/16 Transmitted Only) 13:45 Cbc W/Auto LAB 04/23/16 Complete Diff-Reflex Manual 13:45 Cmp - Comprehensive LAB 04/23/16 Complete Metabolic 13:45 Lipase LAB 04/23/16 Complete 13:45 Ua, Dip Wreflex LAB 04/23/16 Complete Microsc & Job Specification Writer 13:45 Ondansetron Inj PHA 04/23/16 Complete (Zofran) 13:45 Normal Saline (Normal PHA 04/23/16 Complete Saline Iv) 14:00 Ketorolac (Toradol) PHA 04/23/16 Complete 15:00 Ct Abd/Pelvis CT 04/23/16 Resulted W/Contrast Only 14:54 Iohexol (Omnipaque) PHA 04/23/16 Complete 15:02 Normal Saline (Ns) PHA 04/23/16 Complete 15:02 Saline Flush (Iv PHA 04/23/16 Complete Flush) 15:[address] [facility] 04/23/16 Complete 15:02 Lab Results Laboratory Tests Test 04/23/16 13:56 04/23/16 14:14 White Blood Count 6.3T/MM3 Red Blood Count 5.14M/MM3 Hemoglobin 16.4GM/DL Hematocrit 48.8% Mean Corpuscular Volume 94.9UM3 Mean Corpuscular Hemoglobin 31.9UUG Mean Corpuscular Hemoglobin Concent 33.6GM/DL RDW Standard Deviation 46.4FL Platelet Count 170T/MM3 Mean Platelet Volume 10.0UM3 Immature Granulocyte % (Auto) 0.2% Neutrophils (%) (Auto) 68.9% Lymphocytes (%) (Auto) 23.5% Monocytes (%) (Auto) 5.2% Eosinophils (%) (Auto) 1.7% Basophils (%) (Auto) 0.5% Absolute Immature Granulocyte (auto 0.01T/MM3 Absolute Neutrophils (auto) 4.3T/MM3 Absolute Lymphocytes (auto) 1.5T/MM3 Absolute Monocytes (auto) 0.3T/MM3 Absolute Eosinophils (auto) 0.1T/MM3 Absolute Basophils (auto) 0.0T/MM3 Turbidity < 20 Sodium Level 138MEQ/L Potassium Level 4.3MEQ/L Chloride Level 104MEQ/L Carbon Dioxide Level 26MEQ/L Anion Gap 8MEQ/L Blood Urea Nitrogen 10.0MG/DL Creatinine 0.7MG/DL Glomerular Filtration Rate Calc 86 BUN/Creatinine Ratio 14RATIO Glucose Level 415MG/DL Calculated Osmolality 283MOSM/KG Calcium Level 8.7MG/DL Total Bilirubin 0.60MG/DL Icterus Index < 2 Aspartate Amino Transf (AST/SGOT) 25U/L Alanine Aminotransferase (ALT/SGPT) 32U/L Alkaline Phosphatase 89U/L Total Protein 6.5G/DL Albumin 3.4G/DL Globulin 3.1G/DL Albumin/Globulin Ratio 1.1RATIO Lipase 59U/L Chemistry Specimen Hemolysis < 15 Urine Collection Type Voided-not cc-midstr Urine Color Yellow Urine Turbidity Clear Urine pH 6.0 Urine Specific [place] 1.015 Urine Protein Negative Urine Glucose (UA) 3+ Urine Ketones Negative Urine Blood Trace-intact Urine Nitrite Negative Urine Bilirubin Negative Urine Urobilinogen 1.0EU/DL Urine Leukocyte Esterase Negative Urinalysis Comment Microscopic not ind. Medications Current ED Medications Ondansetron HCl 4 mg 4 mg O ONCE IV Last administered on 04/23/16 14:11; Start 04/23/16 at 13:45; Stop 04/23/16 at 13:49; Status DC Sodium Chloride (Normal Saline IV) 1,000 ml @ 999 mls/hr Q1H1M ONCE IV Last administered on 04/23/16 14:10; Start 04/23/16 at 14:00; Stop 04/23/16 at 15:00 ; Status DC Ketorolac Tromethamine (Toradol) 30 mg O ONCE IV Last administered on 15:21; Start 04/23/16 at 15:00; Stop 04/23/16 at 15:01; Status DC Iohexol 1 bottle 1 bottle STK-MED ONCE .ROUTE ; Start 04/23/16 at 15:02; Stop at 15:03; Status DC Sodium Chloride (NS) 100 ml @ As Directed STK-MED ONCE .ROUTE ; Start 04/23/16 at 15:02; Stop 04/23/16 at 15:03; Status DC Sodium Chloride (Iv Flush) 10 ml STK-MED ONCE .ROUTE ; Start 04/23/16 at 15:02; Stop 04/23/16 at 15:03; Status DC CT CT : CT: Abd/Pelvis IV contrast Interpretation: Normal, Discussed w/ Radiologist, Reviewed Written Report EM LLOYD MD Apr 23, 2016 13:23
[2016-04-23] MEDS ORDERED: FLUV50TA2 PO (13:28)
[2016-04-23] MEDS ORDERED: MELA3TAB30 PO (13:29)
--- OUTSIDE RECORDS SUMMARY | 2016-04-23 13:44 | XMS REPORT | Continuity of Care Document ---
Author Author [facility] Organization [facility] Address Unknown Phone Unavailable Support Name Relationship Address Phone YULIET PERDUE MD Caregiver [address] [place] [address] [place] [address] STEVE PECK MD Caregiver [facility] [address] [place] [address] HYACINTH ENGLISH MD Caregiver [address] [place] [address] JAYDA GANN Next Of Kin [address], [place] [id number] C Insurance Providers Payer Name Policy Number Subscriber Name Relationship [facility] Diabetes Ed Manuel Gann 20 Self [...] F (96.8 - 99.1) Temperature (Calculated Celsius) [phone] degrees C (36.0 - 37.3) Pulse Rate [...] specimen been collected/ obtained? Y Urine Specific [place] June 16, 2012 9:54pm 1.015 - Has [...] 01, 2011 10:44pm LAB TEST FORM REQUEST [id number] - EKG May 17, 2008 7:30am Complete [...] 2012 12:40pm 50 MMHG L 80- 100 JK-Etg-Q-Type Natriuretic Peptide August 03, 2011 4:08pm 157 [...] 2007 8:03am Name: MANUEL GANN Unit #: [id number] : 1955 Sex: F Loc / [facility] [place]: [place] DOS: 12/07/13 Signed Report #: [id number] DIAGNOSTIC IMAGING REPORT TYPE OF EXAM: LUMBAR [...] Encounters Encounter Location Date/Time Departed Emergency Room [facility] 12/07/13 1:02pm Discharged Recurring [facility] 08/15/13 2:19pm Recent Diagnosis
[2016-04-23] MEDS ORDERED: ONDANSETRON 4mg/2ml INJECTION IV ONE (13:45)
[2016-04-23] MEDS ORDERED: NORMAL SALINE 1,000 ML IV ONE (14:00)
[2016-04-23 14:01] LABS: BASOPHILS % (AUTO) 0.5 % (0-2); EOSINOPHILS # (AUTO) 0.1 T/MM3 (0-0.5); EOSINOPHILS % (AUTO) 1.7 % (0-4); HCT - HEMATOCRIT 48.8 % (36-46); HGB - HEMOGLOBIN 16.4 GM/DL (12-16); IMMATURE GRANULOCYTE # (AUTO) 0.01 T/MM3 (0.00-0.03); IMMATURE GRANULOCYTE % (AUTO) 0.2 % (0.0-0.5); LYMPHOCYTES # (AUTO) 1.5 T/MM3 (1-4.8); LYMPHOCYTES % (AUTO) 23.5 % (23-45); MEAN CORPUSCULAR HGB 31.9 UUG (26-34); MEAN CORPUSCULAR HGB CONC(MCHC 33.6 GM/DL (31-37); MEAN CORPUSCULAR VOLUME 94.9 UM3 (80-100); MONOCYTES # (AUTO) 0.3 T/MM3 (0-0.8); MONOCYTES % (AUTO) 5.2 % (0-9.0); NEUTROPHILS #(AUTO)-ABSOLUTE 4.3 T/MM3 (1.8-7.7); NEUTROPHILS % (AUTO) 68.9 % (33-66); RED BLOOD COUNT 5.14 M/MM3 (4.00-5.20); WBC - WHITE BLOOD COUNT 6.3 T/MM3 (4.5-11.0)
[2016-04-23 14:17] LABS: ALBUMIN 3.4 G/DL (3.5-5.0); ALBUMIN/GLOBULIN RATIO 1.1 RATIO (1.1-2.2); ALKALINE PHOSPHATASE 89 U/L (38-126); ALT (SGPT) 32 U/L (9-52); ANION GAP 8 MEQ/L (5-15); AST (SGOT) 25 U/L (14-36); BUN/CREATININE RATIO 14 RATIO (6-26); CALCIUM 8.7 MG/DL (8.4-10.2); CHLORIDE 104 MEQ/L (98-107); CO2 - CARBON DIOXIDE 26 MEQ/L (22-30); CREATININE 0.7 MG/DL (0.7-1.2); GLOMERULAR FILTRATION RATE 86; GLUCOSE 415 MG/DL (65-110); POTASSIUM 4.3 MEQ/L (3.6-5); SODIUM 138 MEQ/L (134-144); TOTAL PROTEIN 6.5 G/DL (6.3-8.2)
[2016-04-23 14:22] LABS: BLOOD, URINE TRACE-INTACT (NEGATIVE); COLOR,URINE YELLOW (YELLOW); LEUKOCYTE ESTERASE ,URINE NEGATIVE (NEGATIVE); NITRITE,URINE NEGATIVE (NEGATIVE)
[2016-04-23 14:53] LABS: LIPASE 59 U/L (23-300)
[2016-04-23] MEDS ORDERED: KETOROLAC 30mg/ml INJECTION IV ONE (15:00)
[2016-04-23] MEDS ORDERED: NORMAL SALINE 100 ML ONE (15:02)
[2016-04-23] MEDS ORDERED: SALINE FLUSH 10ml SYRINGE ONE (15:02)
[2016-04-23] MEDS ORDERED: IOHEXOL 300 MG/ML 100ml INJECTION ONE (15:02)
[2016-04-23] MEDS ORDERED: ONDA4TAB7 PO (15:27)
--- NOTE | 2016-04-23 15:28 | DI ---
Indication: ITS.REASON: significant abdominal pain right upper quadrant CT ABD/PELVIS W/CONTRAST ONLY: Comparison: None Technique: Patient scanned from above the diaphragm to below the pubic symphysis after 100 cc Omni 300 intravenous contrast is utilized. Dose reduction imaging technologies used. Reformatted sagittal and coronal images provided. Findings: Heart size is within normal limits. Lung bases showed no acute findings. Liver shows no acute findings. No biliary ductal dilatation or focal masses noted. Gallbladder is contracted. Common duct is not dilated. Spleen is unremarkable. Pancreas is unremarkable. Adrenal glands are unremarkable. Both kidneys excrete the contrast in a similar pattern. No obstruction, mass, cyst or abnormal calcifications are noted. Mild arteriosclerotic changes seen in the abdominal aorta without aneurysm or leakage. Stomach, small bowel and large bowel showed no acute inflammatory changes or suggestion of obstruction. No acute findings noted in the pelvis. Bladder contour is unremarkable. No free air, free fluid or pathologic adenopathy noted. Reformatted images showed mild rotoscoliosis without acute vertebral body fractures. Impression: 1. No acute findings currently appreciated. No obstruction to the bowel or kidneys noted. 2. Gallbladder is contracted without obvious stones or biliary ductal dilatation. 3. Findings called ordering ER clinician when study performed .
[2016-04-23 15:35] VITALS: BP 169/79; PULSE 63; RESP 20; O2SAT 94
== END 2016-04-23 15:35 | disposition home or self-care (01) ==
LOC: ED 12:41
DX: K52.9 Noninfective gastroenteritis and colitis, unspecified (principal)
CPT/HCPCS: 74177; 80053; 81003; 83690; 85025; 93005; 96361; 96374; 96375; 99284; J1885; J2405; J7030; J7050; Q9967; 36000

== ENCOUNTER 2016-04-23 15:33 | Outpatient (CLI) | payer BC ==
[~2016-04-23] VITALS: Ht 175.3 cm; Wt 123.4 kg
[~2016-04-23 15:33] MED LIST changes: +FLUV50TA2 PO; +MELA3TAB30 PO; +ONDA4TAB7 PO
[2016-04-23 15:50] VITALS: BP 173/97; PULSE 52; RESP 18; TEMP 96.7; O2SAT 92
[2016-04-23 15:54] VITALS: Ht 175.3 cm; Wt 123.4 kg
[2016-04-23 16:18] VITALS: BP 177/99; PULSE 55; RESP 18; O2SAT 95
[2016-04-23 17:16] VITALS: BP 177/102; PULSE 53; RESP 18; TEMP 96.3; O2SAT 92
== END 2016-04-23 17:20 | disposition home or self-care (01) ==
LOC: INF.THER 15:33
PROVIDERS: ATTEND Emergency Medicine
DX: D45 Polycythemia vera (principal)
CPT/HCPCS: 99195

== ENCOUNTER → 2016-04-29 | Outpatient (CLI) | payer BC ==
[~2016-04-29] MED LIST changes: -ALBU8.5H INH; -ERGO500044 PO; -GABA-338 PO; -LEVO50TA11 PO; -NAPR220T PO
--- NOTE | 2016-04-29 16:38 | DI ---
Indication: ITS.REASON: R60.0 Localized edema; D75.1 PROCEDURE: US VENOUS DUPLEX, UPPER EXT LT: Encounter: Initial Comparison: None Technique: Color Doppler duplex and grayscale sonographic imaging of the left upper extremity was performed. FINDINGS: There is no evidence for acute deep venous thrombosis in the left arm. The left internal jugular, subclavian, axillary and paired brachial veins were evaluated; compression and augmentation were applied where possible. In addition, color and pulsed Doppler demonstrate appropriate spontaneous flow, cardiac pulsatility and variation with respiration. Superficial thrombosis seen within the cephalic vein midportion. IMPRESSION: No evidence of acute DVT in the left upper extremity. Superficial thrombophlebitis. .
== END ==
LOC: IMA 15:41
PROVIDERS: ATTEND Nurse Practitioner
DX: D75.1 Secondary polycythemia (principal); I80.8 Phlebitis and thrombophlebitis of other sites; R60.0 Localized edema